=== PATIENT | female | born 1950 | race Caucasian/White ===

== ENCOUNTER 2019-02-16 15:29 | Observation (INO) | payer MEDICARE, SELFPAY ==
[2019-02-16] VITALS (9 sets, daily range): BP systolic 135–168; BP diastolic 60–86; PULSE 66–80; RESP 14–24; TEMP 36.4–37.1; O2SAT 95–100; BMI 27.4
--- NOTE | 2019-02-16 15:57 | DI.RAD.S_ITS ---
PROCEDURE: XR CHEST 1V INDICATIONS: chest pain TECHNIQUE: One view of the chest was acquired. COMPARISON: [facility], , CHEST 2 VIEW, 12/13/2017, 17:56. FINDINGS: Surgical changes and devices: None. Lungs and pleura: Lungs are clear. No pleural effusions or pneumothorax. Mediastinum: Mediastinal contours appear normal. Heart size is normal. There is a large gas filled hiatal hernia. Bones and chest wall: No suspicious bony lesions. Overlying soft tissues appear unremarkable. IMPRESSION: 1. No acute cardiopulmonary findings. 2. Large hiatal hernia. Dictated by: Lesley Mitchell M.D. on 02/16/2019 at 16:29 Approved by: Lesley Mitchell M.D. on 02/16/2019 at 16:29
[2019-02-16 16:15] LABS: Add Manual Diff / Slide Review NO; Basophils Absolute Auto 0 /uL (0-100); Basophils Percent Auto 0.5 % (0-2); Eosinophils Absolute Auto 200 /uL (0-450); Eosinophils Percent Auto 2.1 % (2-4); Hematocrit 21.7 % (36-46); Lymphocytes Absolute Auto 1800 /uL (1100-4500); Lymphocytes Percent Auto 23.9 % (25-40); Mean Corpuscular HGB Conc 31.8 % (30-36); Mean Corpuscular Hemoglobin 24.3 PG (26-34); Mean Corpuscular Volume 76.2 fL (80-100); Monocytes Absolute Auto 500 /uL (0-900); Monocytes Percent Auto 6.3 % (3-14); Neutrophils Absolute Auto 5200 /uL (1500-7000); Neutrophils Percent Auto 67.2 % (50-75); Platelet Count 444 X10^3/uL (150-400); Red Blood Cell Count 2.85 X10^6/uL (4.0-5.2); Red Cell Distribution Width 14.1 % (11.6-14.8); White Blood Cell Count 7.7 X10^3/uL (4.5-11.0)
[2019-02-16 16:17] LABS: Hemoglobin 6.9 g/dL (12.0-16.0)
[2019-02-16 16:23] LABS: INR 0.9 (0.9-1.3); Prothrombin Time 10.8 SECONDS (10.1-12.7)
[2019-02-16 16:26] LABS: PTT Partial Thromboplastin Tim 31 SECONDS (26.4-36.2)
[2019-02-16 16:28] LABS: Alanine Aminotransferase 24 IU/L (9-52); Albumin 4.1 g/dL (3.5-5.0); Albumin Globulin Ratio 1.6 (1.0-2.8); Alkaline Phosphatase 72 U/L (38-126); Aspartate Aminotransferase 25 IU/L (14-36); BUN Creatinine Ratio 24.4 (6-22); Blood Urea Nitrogen 22 mg/dL (7-17); Calcium 8.6 mg/dL (8.4-10.2); Carbon Dioxide 26 mmol/L (22-32); Chloride 100 mmol/L (98-107); Creatine Kinase 124 U/L (30-135); Estimated Glomerular Filt Rate > 60.0 mL/min (>60); Globulin 2.5 g/dL (1.7-4.1); Glucose 94 mg/dL (80-110); HEMOLYSIS < 15 (0-50); Lipase 93 U/L (23-300); Potassium 3.9 mmol/L (3.4-5.1); Sodium 135 mmol/L (137-145); Total Protein 6.6 g/dL (6.3-8.2)
[2019-02-16 16:39] LABS: Bilirubin Total < 0.1 mg/dL (0.2-1.3); Troponin I < 0.012 ng/mL (0.01-0.034)
[2019-02-16 16:44] LABS: CKMB % Relative Index 1.8 % (1.5-5.0); Creatine Kinase MB 2.19 ng/mL (<2.37)
--- NOTE | 2019-02-16 17:35 | PC.NURSE ---
States due for colonoscopy in September.
--- NOTE | 2019-02-16 17:58 | ED.SOB ---
HPI - SOB/Dyspnea General Chief Complaint: Shortness of Breath/Dyspnea Stated Complaint: BLOOD PRESSURE IS HIGH Time Seen by Provider: 02/16/19 17:57 Source: patient Mode of arrival: ambulatory Limitations: no limitations History of Present Illness 68-year-old female comes to the emergency department with complaint of shortness of breath. Patient states it has been slowly increasing over time. Patient states that she notice that seemed a little bit worse today. She denies any chest pain or pressure, she denies any passing out. She occasionally feels a little lightheaded. She states when she tries to exert she does get more short of breath. she denies any nausea or vomiting he has not noticed any changes to her stools or any black or tarry stools. She has not noticed any bright red blood in her stool. She has not been having any other bleeding that she has noted. patient states that she was supposed to have a repeat colonoscopy because the 11 04 she had not done an adequate prep. She has not had this done. She occasionally takes aspirin daily but not every single day she takes levothyroxine and denies any other daily medications. She denies any other surgeries at this time. Related Data Home Medications Medication Instructions Recorded Confirmed aspirin [Adult Low Dose Aspirin] 81 mg PO DAILY 02/16/19 02/16/19 cholecalciferol (vitamin D3) 2,000 unit PO DAILY 02/16/19 02/16/19 [Vitamin D3] levothyroxine [Synthroid] 50 mcg PO DAILY 02/16/19 02/16/19 Allergies Allergy/AdvReac Type Severity Reaction Status Date / Time ampicillin [AMPICILLIN] Allergy Intermediate HIVES Verified 02/16/19 15:50 Penicillins [PENICILLINS] Allergy Intermediate HIVES Verified 02/16/19 15:50 Tetracyclines [TETRACYCLINES] Allergy Intermediate HIVES Verified 02/16/19 15:50 Review of Systems Review of Systems ROS Unobtainable: All systems reviewed & are unremarkable except as noted in HPI and below Constitutional Denies chills, Reports fatigue, Denies fever(s), Denies lethargy and Denies weakness Cardiovascular Denies chest pain, Denies syncope, Denies edema, Denies irregular heart rhythm, Denies lightheadedness, Denies radiating jaw, neck or arm pain, Denies palpitations, Reports dyspnea, Reports dyspnea on exertion and Denies orthopnea Respiratory Denies change in phlegm color, Denies chest congestion, Denies cough, Denies hemoptysis, Reports dyspnea, Reports dyspnea on exertion and Denies wheezing Gastrointestinal Gastrointestinal: Denies abdominal pain, Denies melena, Denies hematochezia, Denies change in bowel habits, Denies constipation, Denies diarrhea, Denies nausea and Denies vomiting Genitourinary Denies hematuria, Denies urinary frequency, Denies urinary hesitancy and Denies urinary urgency Musculoskeletal Denies back pain Integumentary/Breasts Denies unusual bruising Neurologic Denies syncope and Denies weakness Endocrine Reports fatigue and Denies palpitations Allergic/Immunologic Denies wheezing [employer] Medical History (Updated 02/16/19 @ 19:26 by Debora Montero DO) Hypothyroid (Chronic) Social History Smoking Status: Former smoker Social History Smoking Status: Former smoker Exam Narrative Exam Narrative: GENERAL: Alert and oriented x three, well-nourished, well-appearing female in no acute distress. HEENT: Head normocephalic, atraumatic, EOMI, pupils reactive, face symmetric, moist mucous membranes NECK: Supple, full range of motion CARDIOVASCULAR: Regular rate and rhythm without murmurs, rubs or gallops. RESPIRATORY: Breath sounds equal bilaterally, no wheezes rales or rhonchi. ABDOMEN: Soft, nontender. Normoactive bowel sounds all 4 quadrants. No guarding or rebound, rigidity, no mass. rectal exam shows no mass, stool is brownish in coloration, stool occult is positive : No CVA tenderness EXTREMITIES: Normal range of motion, no clubbing or edema. Neurovascularly intact NEUROLOGICAL: Cranial nerves II through XII grossly intact. Moving all extremities SKIN: Warm, dry, no petechiae, no rashes or lesions. Initial Vital Signs Initial Vital Signs: Vital Signs Temperature 98.8 F 02/16/19 15:46 Pulse Rate 80 02/16/19 15:46 Respiratory Rate 14 02/16/19 15:46 Blood Pressure 153/84 H 02/16/19 15:46 Pulse Oximetry 100 02/16/19 15:46 Course Orders Ordered: ED Orders 02/16/19 15:53 EKG-12 Lead Stat 02/16/19 15:57 XR chest 2V Stat 02/16/19 16:03 Complete Blood Count AUTO DIFF Stat Comprehensive Metabolic Panel Stat Lipase Stat Partial Thromboplastin Time Stat Prothrombin Time INR Stat Troponin & CK Cardiac Panel Stat 02/16/19 16:45 Packed Cells Stat Type and Screen Stat Sodium Chloride (Normal Saline 0.9%) 250 mls @ 21 mls/hr IV CONT KILLIAN Discontinued Medications Furosemide (Lasix) 20 mg IV NOW ONE Stop: 02/16/19 18:36 Pantoprazole Sodium (Protonix) 40 mg IV NOW ONE Stop: 02/16/19 18:53 Last Admin: 02/16/19 19:21 Dose: 40 mg Vital Signs - 8 hr 02/16/19 15:46 02/16/19 17:59 02/16/19 18:29 Temperature 98.8 F Pulse Rate 80 72 71 Respiratory Rate 14 19 19 Blood Pressure 153/84 H Blood Pressure [Left Arm] 146/74 H 158/78 H Pulse Oximetry 100 100 100 MDM - SOB/Dyspnea Lab Data Attestation: I reviewed the patient's lab results. Result diagrams: 02/16/19 16:03 02/16/19 16:03 Lab Results 02/16/19 02/16/19 02/16/19 Range/Units 16:03 16:03 16:03 WBC 7.7 (4.5-11.0) X10^3/uL RBC 2.85 L (4.0-5.2) X10^6/uL Hgb 6.9 L* (12.0-16.0) g/dL Hct 21.7 L (36-46) % MCV 76.2 L (80-100) fL MCH 24.3 L (26-34) PG MCHC 31.8 (30-36) % RDW 14.1 (11.6-14.8) % Plt Count 444 H (150-400) X10^3/uL Neut % (Auto) 67.2 (50-75) % Lymph % (Auto) 23.9 L (25-40) % [place] % (Auto) 6.3 (3-14) % Eos % (Auto) 2.1 (2-4) % Baso % (Auto) 0.5 (0-2) % Neut # (Auto) 5200 (7116-1940) /uL Lymph # (Auto) 1800 (9812-5546) /uL [place] # (Auto) 500 (0-900) /uL Eos # (Auto) 200 (0-450) /uL Baso # (Auto) 0 (0-100) /uL PT 10.8 (10.1-12.7) SECONDS INR 0.9 (0.9-1.3) APTT 31 (26.4-36.2) SECONDS Sodium 135 L (137-145) mmol/L Potassium 3.9 (3.4-5.1) mmol/L Chloride 100 (98-107) mmol/L Carbon Dioxide 26 (22-32) mmol/L BUN 22 H (7-17) mg/dL Creatinine 0.90 (0.52-1.04) mg/dL Estimated GFR > 60.0 (>60) mL/min BUN/Creatinine Ratio 24.4 H (6-22) Glucose 94 (80-110) mg/dL Calcium 8.6 (8.4-10.2) mg/dL Total Bilirubin < 0.1 L (0.2-1.3) mg/dL AST 25 (14-36) IU/L ALT 24 (9-52) IU/L Alkaline Phosphatase 72 (38-126) U/L Total Creatine Kinase 124 (30-135) U/L CK-MB (CK-2) 2.19 (<2.37) ng/mL CK-MB (CK-2) Rel Index 1.8 (1.5-5.0) % Troponin I < 0.012 (0.01-0.034) ng/mL Total Protein 6.6 (6.3-8.2) g/dL Albumin 4.1 (3.5-5.0) g/dL Globulin 2.5 (1.7-4.1) g/dL Albumin/Globulin Ratio 1.6 (1.0-2.8) Lipase 93 (23-300) U/L Blood Type Crossmatch 02/16/19 Range/Units 16:45 WBC (4.5-11.0) X10^3/uL RBC (4.0-5.2) X10^6/uL Hgb (12.0-16.0) g/dL Hct (36-46) % MCV (80-100) fL MCH (26-34) PG MCHC (30-36) % RDW (11.6-14.8) % Plt Count (150-400) X10^3/uL Neut % (Auto) (50-75) % Lymph % (Auto) (25-40) % [place] % (Auto) (3-14) % Eos % (Auto) (2-4) % Baso % (Auto) (0-2) % Neut # (Auto) (7311-0699) /uL Lymph # (Auto) (6185-0090) /uL [place] # (Auto) (0-900) /uL Eos # (Auto) (0-450) /uL Baso # (Auto) (0-100) /uL PT (10.1-12.7) SECONDS INR (0.9-1.3) APTT (26.4-36.2) SECONDS Sodium (137-145) mmol/L Potassium (3.4-5.1) mmol/L Chloride (98-107) mmol/L Carbon Dioxide (22-32) mmol/L BUN (7-17) mg/dL Creatinine (0.52-1.04) mg/dL Estimated GFR (>60) mL/min BUN/Creatinine Ratio (6-22) Glucose (80-110) mg/dL Calcium (8.4-10.2) mg/dL Total Bilirubin (0.2-1.3) mg/dL AST (14-36) IU/L ALT (9-52) IU/L Alkaline Phosphatase (38-126) U/L Total Creatine Kinase (30-135) U/L CK-MB (CK-2) (<2.37) ng/mL CK-MB (CK-2) Rel Index (1.5-5.0) % Troponin I (0.01-0.034) ng/mL Total Protein (6.3-8.2) g/dL Albumin (3.5-5.0) g/dL Globulin (1.7-4.1) g/dL Albumin/Globulin Ratio (1.0-2.8) Lipase (23-300) U/L Blood Type O Positive Crossmatch See Detail Imaging Data Chest x-ray: Radiologist's impression: Deisy Doty 68 F [address] [address] XRay Report Signed Patient: Deisy Doty AMR#: [id number] : 1950Acct:[id number] Age/Sex: 68 / FDate of Service: 02/16/19 Loc: ED Accession Number: [id number] Procedure: XR chest 2V Ordering Provider: Debora Montero D.O. PROCEDURE: XR CHEST 1V INDICATIONS: chest pain TECHNIQUE: One view of the chest was acquired. COMPARISON: [facility], CHEST 2 VIEW, 12/13/2017, 17:56. FINDINGS: Surgical changes and devices: None. Lungs and pleura: Lungs are clear. No pleural effusions or pneumothorax. Mediastinum: Mediastinal contours appear normal. Heart size is normal. There is a large gas filled hiatal hernia. Bones and chest wall: No suspicious bony lesions. Overlying soft tissues appear unremarkable. IMPRESSION: 1. No acute cardiopulmonary findings. 2. Large hiatal hernia. Dictated by: Lesley Mitchell M.D. on 02/16/2019 at 16:29 Approved by: Lesley Mitchell M.D. on 02/16/2019 at 16:29 ECG Data Attestation: I personally reviewed and interpreted this ECG as follows: Prior ECG tracings: available for review Interpretation: EKG shows a sinus rhythm with a rate of 77, AL interval 167, QRS of 97 and QTC of 385. Incomplete right bundle branch block. MDM Narrative Medical decision making narrative: Patient is mildly symptomatic but has a significantly low hemoglobin at 6.9. Patient's vital signs are normal with slight hypertension. Hemoccult is positive. patient's platelets are elevated at 444, white count is in the normal range. Patient's BUN is slightly elevated , coags are normal, sodium was 135 with normal LFTs and troponin is negative. patient had a chest x-ray she was complaining of shortness of breath which showed a hiatal hernia and no other acute findings. Patient and I discussed she is willing to receive blood and was ordered 1 unit packed red blood cells, Protonix 40 mg IV. I spoke with the Katina SENIOR ELECTRICAL PROJECT MANAGER with the hospitalist and accepts. We did discuss that she had a very short period of abdominal pain last week that quickly resolved and no other imaging was ordered today but we did discuss colonoscopy. She states she will follow up with General surgery regarding colonoscopy. Discharge Plan Departure Patient Disposition: Admitted as Observation Clinical Impression: Symptomatic anemia, GI bleed
--- NOTE | 2019-02-16 18:36 | ED_ITS ---
HPI - SOB/Dyspnea General Chief Complaint: Shortness of Breath/Dyspnea Stated Complaint: BLOOD PRESSURE IS HIGH Time Seen by Provider: 02/16/19 17:57 Source: patient Mode of arrival: ambulatory Limitations: no limitations History of Present Illness 68-year-old female comes to the emergency department with complaint of shortness of breath. Patient states it has been slowly increasing over time. Patient states that she notice that seemed a little bit worse today. She denies any chest pain or pressure, she denies any passing out. She occasionally feels a little lightheaded. She states when she tries to exert she does get more short of breath. she denies any nausea or vomiting he has not noticed any changes to her stools or any black or tarry stools. She has not noticed any bright red blood in her stool. She has not been having any other bleeding that she has noted. patient states that she was supposed to have a repeat colonoscopy because the 11 04 she had not done an adequate prep. She has not had this done. She occasionally takes aspirin daily but not every single day she takes levothyroxine and denies any other daily medications. She denies any other surgeries at this time. Related Data Home Medications Medication Instructions Recorded Confirmed aspirin [Adult Low Dose Aspirin] 81 mg PO DAILY 02/16/19 02/16/19 cholecalciferol (vitamin D3) 2,000 unit PO DAILY 02/16/19 02/16/19 [Vitamin D3] levothyroxine [Synthroid] 50 mcg PO DAILY 02/16/19 02/16/19 Allergies Allergy/AdvReac Type Severity Reaction Status Date / Time ampicillin [AMPICILLIN] Allergy Intermediate HIVES Verified 02/16/19 15:50 Penicillins [PENICILLINS] Allergy Intermediate HIVES Verified 02/16/19 15:50 Tetracyclines [TETRACYCLINES] Allergy Intermediate HIVES Verified 02/16/19 15:50 Review of Systems Review of Systems ROS Unobtainable: All systems reviewed & are unremarkable except as noted in HPI and below Constitutional Denies chills, Reports fatigue, Denies fever(s), Denies lethargy and Denies weakness Cardiovascular Denies chest pain, Denies syncope, Denies edema, Denies irregular heart rhythm, Denies lightheadedness, Denies radiating jaw, neck or arm pain, Denies palpitations, Reports dyspnea, Reports dyspnea on exertion and Denies orthopnea Respiratory Denies change in phlegm color, Denies chest congestion, Denies cough, Denies hemoptysis, Reports dyspnea, Reports dyspnea on exertion and Denies wheezing Gastrointestinal Gastrointestinal: Denies abdominal pain, Denies melena, Denies hematochezia, Denies change in bowel habits, Denies constipation, Denies diarrhea, Denies nausea and Denies vomiting Genitourinary Denies hematuria, Denies urinary frequency, Denies urinary hesitancy and Denies urinary urgency Musculoskeletal Denies back pain Integumentary/Breasts Denies unusual bruising Neurologic Denies syncope and Denies weakness Endocrine Reports fatigue and Denies palpitations Allergic/Immunologic Denies wheezing [facility] Medical History (Updated 02/16/19 @ 19:26 by Debora Montero DO) Hypothyroid (Chronic) Social History Smoking Status: Former smoker Social History Smoking Status: Former smoker Exam Narrative Exam Narrative: GENERAL: Alert and oriented x three, well-nourished, well- appearing female in no acute distress. HEENT: Head normocephalic, atraumatic, EOMI, pupils reactive, face symmetric, moist mucous membranes NECK: Supple, full range of motion CARDIOVASCULAR: Regular rate and rhythm without murmurs, rubs or gallops. RESPIRATORY: Breath sounds equal bilaterally, no wheezes rales or rhonchi. ABDOMEN: Soft, nontender. Normoactive bowel sounds all 4 quadrants. No guarding or rebound, rigidity, no mass. rectal exam shows no mass, stool is brownish in coloration, stool occult is positive : No CVA tenderness EXTREMITIES: Normal range of motion, no clubbing or edema. Neurovascularly intact NEUROLOGICAL: Cranial nerves II through XII grossly intact. Moving all extremities SKIN: Warm, dry, no petechiae, no rashes or lesions. Initial Vital Signs Initial Vital Signs: Vital Signs Temperature 98.8 F 02/16/19 15:46 Pulse Rate 80 02/16/19 15:46 Respiratory Rate 14 02/16/19 15:46 Blood Pressure 153/84 H 02/16/19 15:46 Pulse Oximetry 100 02/16/19 15:46 Course Orders Ordered: ED Orders 02/16/19 15:53 EKG-12 Lead Stat 02/16/19 15:57 XR chest 2V Stat 02/16/19 16:03 Complete Blood Count AUTO DIFF Stat Comprehensive Metabolic Panel Stat Lipase Stat Partial Thromboplastin Time Stat Prothrombin Time INR Stat Troponin & CK Cardiac Panel Stat 02/16/19 16:45 Packed Cells Stat Type and Screen Stat Sodium Chloride (Normal Saline 0.9%) 250 mls @ 21 mls/hr IV CONT KILLIAN Discontinued Medications Furosemide (Lasix) 20 mg IV NOW ONE Stop: 02/16/19 18:36 Pantoprazole Sodium (Protonix) 40 mg IV NOW ONE Stop: 02/16/19 18:53 Last Admin: 02/16/19 19:21 Dose: 40 mg Vital Signs - 8 hr 02/16/19 15:46 02/16/19 17:59 02/16/19 18:29 Temperature 98.8 F Pulse Rate 80 72 71 Respiratory Rate 14 19 19 Blood Pressure 153/84 H Blood Pressure [Left Arm] 146/74 H 158/78 H Pulse Oximetry 100 100 100 MDM - SOB/Dyspnea Lab Data Attestation: I reviewed the patient's lab results. Result diagrams: 02/16/19 16:03 02/16/19 16:03 Lab Results 02/16/19 02/16/19 02/16/19 Range/Units 16:03 16:03 16:03 WBC 7.7 (4.5-11.0) X10^3/uL RBC 2.85 L (4.0-5.2) X10^6/uL Hgb 6.9 L* (12.0-16.0) g/dL Hct 21.7 L (36-46) % MCV 76.2 L (80-100) fL MCH 24.3 L (26-34) PG MCHC 31.8 (30-36) % RDW 14.1 (11.6-14.8) % Plt Count 444 H (150-400) X10^3/uL Neut % (Auto) 67.2 (50-75) % Lymph % (Auto) 23.9 L (25-40) % [place] % (Auto) 6.3 (3-14) % Eos % (Auto) 2.1 (2-4) % Baso % (Auto) 0.5 (0-2) % Neut # (Auto) 5200 (4407-4271) /uL Lymph # (Auto) 1800 (2127-9954) /uL [place] # (Auto) 500 (0-900) /uL Eos # (Auto) 200 (0-450) /uL Baso # (Auto) 0 (0-100) /uL PT 10.8 (10.1-12.7) SECONDS INR 0.9 (0.9-1.3) APTT 31 (26.4-36.2) SECONDS Sodium 135 L (137-145) mmol/L Potassium 3.9 (3.4-5.1) mmol/L Chloride 100 (98-107) mmol/L Carbon Dioxide 26 (22-32) mmol/L BUN 22 H (7-17) mg/dL Creatinine 0.90 (0.52-1.04) mg/dL Estimated GFR > 60.0 (>60) mL/min BUN/Creatinine Ratio 24.4 H (6-22) Glucose 94 (80-110) mg/dL Calcium 8.6 (8.4-10.2) mg/dL Total Bilirubin < 0.1 L (0.2-1.3) mg/dL AST 25 (14-36) IU/L ALT 24 (9-52) IU/L Alkaline Phosphatase 72 (38-126) U/L Total Creatine Kinase 124 (30-135) U/L CK-MB (CK-2) 2.19 (<2.37) ng/mL CK-MB (CK-2) Rel Index 1.8 (1.5-5.0) % Troponin I < 0.012 (0.01-0.034) ng/mL Total Protein 6.6 (6.3-8.2) g/dL Albumin 4.1 (3.5-5.0) g/dL Globulin 2.5 (1.7-4.1) g/dL Albumin/Globulin Ratio 1.6 (1.0-2.8) Lipase 93 (23-300) U/L Blood Type Crossmatch 02/16/19 Range/Units 16:45 WBC (4.5-11.0) X10^3/uL RBC (4.0-5.2) X10^6/uL Hgb (12.0-16.0) g/dL Hct (36-46) % MCV (80-100) fL MCH (26-34) PG MCHC (30-36) % RDW (11.6-14.8) % Plt Count (150-400) X10^3/uL Neut % (Auto) (50-75) % Lymph % (Auto) (25-40) % [place] % (Auto) (3-14) % Eos % (Auto) (2-4) % Baso % (Auto) (0-2) % Neut # (Auto) (2482-2741) /uL Lymph # (Auto) (4720-0215) /uL [place] # (Auto) (0-900) /uL Eos # (Auto) (0-450) /uL Baso # (Auto) (0-100) /uL PT (10.1-12.7) SECONDS INR (0.9-1.3) APTT (26.4-36.2) SECONDS Sodium (137-145) mmol/L Potassium (3.4-5.1) mmol/L Chloride (98-107) mmol/L Carbon Dioxide (22-32) mmol/L BUN (7-17) mg/dL Creatinine (0.52-1.04) mg/dL Estimated GFR (>60) mL/min BUN/Creatinine Ratio (6-22) Glucose (80-110) mg/dL Calcium (8.4-10.2) mg/dL Total Bilirubin (0.2-1.3) mg/dL AST (14-36) IU/L ALT (9-52) IU/L Alkaline Phosphatase (38-126) U/L Total Creatine Kinase (30-135) U/L CK-MB (CK-2) (<2.37) ng/mL CK-MB (CK-2) Rel Index (1.5-5.0) % Troponin I (0.01-0.034) ng/mL Total Protein (6.3-8.2) g/dL Albumin (3.5-5.0) g/dL Globulin (1.7-4.1) g/dL Albumin/Globulin Ratio (1.0-2.8) Lipase (23-300) U/L Blood Type O Positive Crossmatch See Detail Imaging Data Chest x-ray: Radiologist's impression: Deisy Doty 68 F [address] [address] XRay Report Signed Patient: Deisy Doty AMR#: [id number] : 1950Acct:[id number] Age/Sex: 68 / FDate of Service: 02/16/19 Loc: ED Accession Number: [id number] Procedure: XR chest 2V Ordering Provider: Debora Montero D.O. PROCEDURE: XR CHEST 1V INDICATIONS: chest pain TECHNIQUE: One view of the chest was acquired. COMPARISON: [facility], CHEST 2 VIEW, 12/13/2017, 17:56. FINDINGS: Surgical changes and devices: None. Lungs and pleura: Lungs are clear. No pleural effusions or pneumothorax. Mediastinum: Mediastinal contours appear normal. Heart size is normal. There is a large gas filled hiatal hernia. Bones and chest wall: No suspicious bony lesions. Overlying soft tissues appear unremarkable. IMPRESSION: 1. No acute cardiopulmonary findings. 2. Large hiatal hernia. Dictated by: Lesley Mitchell M.D. on 02/16/2019 at 16:29 Approved by: Lesley Mitchell M.D. on 02/16/2019 at 16:29 ECG Data Attestation: I personally reviewed and interpreted this ECG as follows: Prior ECG tracings: available for review Interpretation: EKG shows a sinus rhythm with a rate of 77, [place] interval 167, QRS of 97 and QTC of 385. Incomplete right bundle branch block. MDM Narrative Medical decision making narrative: Patient is mildly symptomatic but has a significantly low hemoglobin at 6.9. Patient's vital signs are normal with sl ight hypertension. Hemoccult is positive. patient's platelets are elevated at 444, white count is in the normal range. Patient's BUN is slightly elevated , coags are normal, sodium was 135 with normal LFTs and troponin is negative. patient had a chest x-ray she was complaining of shortness of breath which showed a hiatal hernia and no other acute findings. Patient and I discussed she is willing to receive blood and was ordered 1 unit packed red blood cells, Protonix 40 mg IV. I spoke with the Katina WINDOW/DISTRIBUTION CLERK with the hospitalist and accepts. We did discuss that she had a very short period of abdominal pain last week that quickly resolved and no other imaging was ordered today but we did discuss colonoscopy. She states she will follow up with General surgery regarding colonoscopy. Discharge Plan Departure Patient Disposition: Admitted as Observation Clinical Impression: Symptomatic anemia, GI bleed
[2019-02-16] MEDS: PANTOPRAZOLE 40 MG VIAL IV (19:21)
--- NOTE | 2019-02-16 20:37 | PC.NURSE ---
Pt arrived from the ER to [facility] 206 @ 1954 Alert/oriented x 3 Lungs clear, SpO2 95% RA. SCD applied. HL LAC intact/patent. Pt oriented to room and call system. Call light w/in reach. Pt calls appropriately.
--- NOTE | 2019-02-16 22:32 | PC.NURSE ---
Pt admitted to 206 from ER with c/o increase sob for last 2 weeks. now here to recieve 1 unit of prbc that are being infused. vss oriented to room and hospital , npo no pain tele on SR
--- NOTE | 2019-02-16 22:59 | P.HP_ITS ---
History of Present Illness Date Patient Seen: 02/16/19 Time Patient Seen: 22:59 Chief complaint: BLOOD PRESSURE IS HIGH Narrative: The patient is a poor and unreliable historian. Patient was referred to the ED on 02/16/2019 by the walk-in clinic to be evaluated for shortness of breath. Patient reports having progressive dyspnea since November of 2018, more pronounced in the past 2 weeks. Associated symptoms include fatigue lightheadedness, and palpitations. Reports having few days of intermittent LLQ abdominal pain in the past two weeks, self resolved. Denies chest pain, nausea, vomiting, diarrhea, syncopal events, hemoptysis, hematemesis, and blood loss per rectum. Denies weight loss. No known prior history of anemia. Denies routine use of NSAIDs. On ASA 81 mg daily. No history of autoimmune GI disorders. She has had a colonoscopy 8 years ago, a polyp was found and resected. She was asked to follow up in 5 years, but failed to do so. It appears a colonoscopy was planned in January of 2018; however, patient was unable to tolerate the prep and decided not to continue with the procedure. Family history significant for colorectal cancer. Initial labs revealed a Hgb of 6.9 (prevously 13.4 on 12/2017). Patient's PMH is limited to hypothyroidisn, superficial thrombophlebitis, hiatal hernia, and potentially an esophageal motility disorder. ED Work-Up WBC 7.7 RBC 2.85 HGB 6.9 HCT 21.7 MCV 76.2 MCH 24.3 RDW 14.1 PLT 44 NA 135 K 3.9 CL 100 CA 8.6 CO2 26 BUN 22 CR 0.9 T. BILI < 0.1 AST 25 ALT 24 Alk Phos 72 CK 124 TROP < 0.012 CXR... no acute cardiopulmonary findings, large hiatal hernia Patient History Medical History (Updated 02/16/19 @ 23:47 by MERCEDES Aguirre) Vitamin D deficiency (Acute) Hypothyroid (Chronic) Surgical History (Updated 02/16/19 @ 23:47 by MERCEDES Aguirre) H/O bilateral oophorectomy (Acute) Family History (Updated 02/16/19 @ 23:45 by MERCEDES Aguirre) Mother Lymphoma Father Colorectal cancer Social History Smoking Status: Former smoker Family & Social History Family History (Updated 02/16/19 @ 23:45 by MERCEDES Aguirre) Mother Lymphoma Father Colorectal cancer Safety & Behavioral: Feels Safe in Current Yes Environment Been Physically Hurt or No Threatened By a Person Suicidal Ideation Description None Suicide Plan Description No Plan Tobacco & Substance use: Smoking Status Former smoker, quit in 1983. Prior to that smoked 1 pack per day for 12-15 years. alcohol intake frequency Denies current use of alcohol. Does have prior use of alcohol without alcoholism. Substance Use Type Denies prior and current recreational drug use Meds Home Medications Medication Instructions Recorded Confirmed Type aspirin [Adult Low Dose Aspirin] 81 mg PO DAILY 02/16/19 02/16/19 History cholecalciferol (vitamin D3) 2,000 unit PO DAILY 02/16/19 02/16/19 History [Vitamin D3] levothyroxine [Synthroid] 50 mcg PO DAILY 02/16/19 02/16/19 History Allergies Allergy/AdvReac Type Severity Reaction Status Date / Time ampicillin [AMPICILLIN] Allergy Intermediate HIVES Verified 02/16/19 15:50 Penicillins [PENICILLINS] Allergy Intermediate HIVES Verified 02/16/19 15:50 Tetracyclines [TETRACYCLINES] Allergy Intermediate HIVES Verified 02/16/19 15:50 Review of Systems Review of Systems All systems reviewed & are unremarkable except as noted in HPI and below Exam Vital Signs (past 8 hours): - 02/16/19 15:46 02/16/19 17:59 02/16/19 18:29 Temperature 98.8 F Pulse Rate 80 72 71 Respiratory Rate 14 19 Blood Pressure 153/84 H Blood Pressure [Left Arm] 146/74 H 158/78 H Pulse Oximetry 100 100 100 02/16/19 19:30 02/16/19 19:59 02/16/19 20:05 Temperature 97.6 F Pulse Rate 78 73 Respiratory Rate 24 18 Blood Pressure 168/86 H Blood Pressure [Left Arm] 149/60 H Pulse Oximetry 100 95 95 02/16/19 21:21 02/16/19 21:35 Temperature 98.1 F 97.9 F Pulse Rate 72 66 Respiratory Rate 18 20 Blood Pressure 147/73 H 135/79 Blood Pressure [Left Arm] Pulse Oximetry Oxygen Delivery Method Room Air Narrative Exam Narrative: Constitutional: NAD Neurologic: AOx3, no focal neurological deficits, poor memory recall - appears to be advanced for age Head: NC, AT Eyes: PERRL, EOMI, Ears: external ears normal, no otorrhea Nose: external nose normal, no rhinorrhea or epistaxis Throat: dry MM, oropharynx w/o exudate Neck: no masses, lymphadenopathy, or JVD Chest / Respiratory: equal chest rise, unlabored respiratory effort, no tachypnea, CTAB Heart / CV: S1S2, no murmur Abdomen / GI: round, NT, ND, + BS, no organomegaly Peripheral / Vascular: warm to touch, DP and PT pulses palpable, trace 1+ BLE edema, both extremity significant for varicosities, right lower extremities with superficial hardened knot Musc: full ROM of upper and lower extremities, adequate muscle tone and bulk Skin: no ecchymosis or suspicious lesions / ulcers, pale nailbeds Objective Labs Result Diagrams: 02/16/19 16:03 02/16/19 16:03 Labs: Laboratory Results - last 24 hr 02/16/19 02/16/19 02/16/19 16:03 16:03 16:03 WBC 7.7 RBC 2.85 L Hgb 6.9 L* Hct 21.7 L MCV 76.2 L MCH 24.3 L MCHC 31.8 RDW 14.1 Plt Count 444 H Neut % (Auto) 67.2 Lymph % (Auto) 23.9 L [place] % (Auto) 6.3 Eos % (Auto) 2.1 Baso % (Auto) 0.5 Neut # (Auto) 5200 Lymph # (Auto) 1800 [place] # (Auto) 500 Eos # (Auto) 200 Baso # (Auto) 0 PT 10.8 INR 0.9 APTT 31 Sodium 135 L Potassium 3.9 Chloride 100 Carbon Dioxide 26 BUN 22 H Creatinine 0.90 Estimated GFR > 60.0 BUN/Creatinine Ratio 24.4 H Glucose 94 Calcium 8.6 Total Bilirubin < 0.1 L AST 25 ALT 24 Alkaline Phosphatase 72 Total Creatine Kinase 124 CK-MB (CK-2) 2.19 CK-MB (CK-2) Rel Index 1.8 Troponin I < 0.012 Total Protein 6.6 Albumin 4.1 Globulin 2.5 Albumin/Globulin Ratio 1.6 Lipase 93 Blood Type Antibody Screen Crossmatch 02/16/19 16:45 WBC RBC Hgb Hct MCV MCH MCHC RDW Plt Count Neut % (Auto) Lymph % (Auto) [place] % (Auto) Eos % (Auto) Baso % (Auto) Neut # (Auto) Lymph # (Auto) [place] # (Auto) Eos # (Auto) Baso # (Auto) PT INR APTT Sodium Potassium Chloride Carbon Dioxide BUN Creatinine Estimated GFR BUN/Creatinine Ratio Glucose Calcium Total Bilirubin AST ALT Alkaline Phosphatase Total Creatine Kinase CK-MB (CK-2) CK-MB (CK-2) Rel Index Troponin I Total Protein Albumin Globulin Albumin/Globulin Ratio Lipase Blood Type O Positive Antibody Screen Negative Crossmatch See Detail Assessment & Plan Assessment & Plan narrative: Acute blood loss anemia (microcytic), acute, present on admission, active h/o hemorrhoids. Family history of colorectal cancer and lymphoma. - Transfuse 1 unit PRBCs - Trend Hgb Q8H, repeat CBC at 2 am - Add iron studies to her initial labs Acute GI Bleed, present on admission, active No s/s of hemodynamic instability. - Consult general surgery, routine, to be notified in am - Hemoccult positive - NPO status - Protonix 40 mg BID Hypovolemia, acute, present on admission, active - receiving 1 unit of PRBC - add NS at 75 ml/hr x1L - hold ASA at this time Exertional Dyspnea, acute, present on admission, acive potentially in the setting of anemia, cardiac pathology cannot be ruled out. Trop WNL. EKG revealed sinus rhythm with incomplete are BBB. - if not improving, then may need to consider an echo Essential hypertension, chronic condition, present on admission, poorly controlled, active BP mildly elevated. - Trend BP overnight, consider starting on an anti-hypertensive in am Large hiatal hernia, chronic present on admission, active possibly increased in size from previous exam and contributing to the degree of anemia Hypothyroidism, chronic, present on admission, active - Resume [employer] regimen of levothyroxine, will check TSH level Home medications reviewed and reconciled. VTE prophylaxis with SCDs Quality VTE Deep Vein Thrombosis/Pulmonary Embolism Present on Admission: No
[2019-02-17] VITALS (17 sets, daily range): BP systolic 92–154; BP diastolic 48–86; PULSE 55–90; RESP 15–20; TEMP 36.4–37.6; O2SAT 94–100; BMI 27.0
--- NOTE | 2019-02-17 | PATH_ITS ---
[facility] Accession Number: [id number] . 01 Material submitted: . gastrointestinal site - RANDOM GASTRIC BIOPSIES . 02 Diagnosis: Stomach, Random Biopsies: Antral and body-type mucosa with no diagnostic abnormality. Negative for Helicobacter by immunohistochemistry. Negative for intestinal metaplasia. Negative for dysplasia and malignancy. [facility]/02/19/2019 . 02 Electronically signed: . Rossana Rodas MD, Pathologist NPI- [id number] . 01 Gross description: . RANDOM GASTRIC BIOPSIES: Received in formalin are multiple fragment(s) of king, soft tissue measuring 0.1 x 0.1 x 0.1 cm to 0.2 x 0.2 x 0.1 cm which is entirely submitted and submitted entirely in 1 cassette(s) /DMC /DMC . 02 Microscopic: . An immunohistochemical stain was performed to evaluate for Helicobacter organisms and is negative. The control stain showed appropriate reactivity. . * This test was developed and its performance characteristics determined by [facility]. It has not been cleared or approved by the U.S. Food and Drug Administration. The FDA has determined that such clearance or approval is not necessary. This test is used for clinical purposes. It should not be regarded as investigational or for research. . 02 Pathologist provided ICD-10: R10.9 . 02 CPT . 733163, Q50013 Performed at: [facility] [address] [place] [address], [place], [place] [id number] MD Adi Guerrero MD Phone: [phone] Performed at: 02 [facility] [address] [place], [place] [id number] MD Rossana Rodas MD Phone: [phone]
[2019-02-17] MEDS: FUROSEMIDE 20 MG/2 ML VIAL IV (00:07)
[2019-02-17 01:45] LABS: Reticulocyte Count, Percent 1.6 % (1.06-2.63)
[2019-02-17] MEDS: SODIUM CHLORIDE 0.9% 1,000 ML 75 ML IV (01:52)
[2019-02-17 02:20] LABS: Ferritin 4.5 ng/mL (11.1-264)
[2019-02-17 02:29] LABS: BUN Creatinine Ratio 21.3 (6-22); Blood Urea Nitrogen 17 mg/dL (7-17); Calcium 9.1 mg/dL (8.4-10.2); Carbon Dioxide 31 mmol/L (22-32); Chloride 101 mmol/L (98-107); Estimated Glomerular Filt Rate > 60.0 mL/min (>60); Glucose 94 mg/dL (80-110); HEMOLYSIS < 15 (0-50); Potassium 3.5 mmol/L (3.4-5.1); Sodium 138 mmol/L (137-145)
[2019-02-17 02:36] LABS: Add Manual Diff / Slide Review NO; Basophils Absolute Auto 0 /uL (0-100); Basophils Percent Auto 0.7 % (0-2); Eosinophils Absolute Auto 200 /uL (0-450); Eosinophils Percent Auto 2.7 % (2-4); Hemoglobin 8.8 g/dL (12.0-16.0); Lymphocytes Absolute Auto 1700 /uL (1100-4500); Lymphocytes Percent Auto 29.7 % (25-40); Mean Corpuscular HGB Conc 33.7 % (30-36); Mean Corpuscular Hemoglobin 26.1 PG (26-34); Mean Corpuscular Volume 77.4 fL (80-100); Monocytes Absolute Auto 500 /uL (0-900); Monocytes Percent Auto 8.5 % (3-14); Neutrophils Absolute Auto 3300 /uL (1500-7000); Neutrophils Percent Auto 58.4 % (50-75); Platelet Count 424 X10^3/uL (150-400); Red Blood Cell Count 3.39 X10^6/uL (4.0-5.2); Red Cell Distribution Width 15.4 % (11.6-14.8); White Blood Cell Count 5.6 X10^3/uL (4.5-11.0)
[2019-02-17 02:39] LABS: Hematocrit 26.3 % (36-46)
[2019-02-17 03:05] LABS: TSH w/ Reflex to FT4 1.62 uIU/mL (0.47-4.68)
[2019-02-17 04:03] LABS: HEMOLYSIS < 15 (0-50); Iron 19 ug/dL (37-170)
[2019-02-17 06:34] LABS: Percent Iron Saturation 4 % (15-50); Total Iron Binding Capacity 456 ug/dL (265-497); Transferrin 343 mg/dL (206-381)
--- NOTE | 2019-02-17 07:42 | P.PN_ITS ---
Subjective Date Patient Seen: 02/17/19 Interval history: The patient is resting in bed comfortably and in no acute distress. He or she denies headache, ear pain, rhinitis, sore throat, cough, shortness of breath, chest pain, abdominal pain, nausea, vomiting, fever, chills, dysuria, diarrhea or constipation. He or she is voiding and eliminating without difficulty. He or she is up ambulating without or with assistance. Exam Vital Signs (past 8 hours): - 02/16/19 23:56 02/17/19 00:00 02/17/19 04:00 Temperature 97.8 F 98.3 F Pulse Rate 69 90 Respiratory Rate 18 20 Blood Pressure 144/85 H 138/74 Pulse Oximetry 99 98 97 02/17/19 06:00 Temperature 97.5 F L Pulse Rate 70 Respiratory Rate 16 Blood Pressure 127/77 Pulse Oximetry 99 Oxygen Delivery Method Room Air Narrative Exam Narrative: General: No acute distress, well-developed, well-nourished, appropriately interactive HEENT: Normocephalic, atraumatic. External ears without defect. Pupils equal, round, and reactive to light and accommodation. Anicteric sclerae, moist conjunctivae, and no lid lag. Oropharynx free of erythema and cobble stoning with moist mucosa. Neck: Supple with full range of motion. No jugular venous distension. No bruits. No lymphadenopathy or thyromegaly. Cardiovascular: Regular rate and rhythm without murmurs, rubs, or gallops appreciated Pulmonary: Clear to auscultation bilaterally without crackles, wheezes, or rhonchi. Normal respiratory effort with no use of accessory muscles. Abdomen: Bowel tones present. Soft, nontender, nondistended. No hepatosplenomegaly or masses appreciated. Extremities: No clubbing, cyanosis, or edema. Skin: Normal temperature, turgor, and texture; no rash, ulcers, or subcutaneous nodules appreciated. Neurological: Cranial nerves grossly intact. Normal muscle strength, tone, and bulk. Reflexes, coordination, and sensory function within normal limits. No known gait impairment. Psychiatric: Normal mood and affect. Alert and oriented to person, place, and time. Objective Labs Result Diagrams: 02/17/19 02:09 02/17/19 02:09 Labs: Laboratory Results - last 24 hr 02/16/19 02/16/19 02/16/19 16:00 16:00 16:03 WBC 7.7 RBC 2.85 L Hgb 6.9 L* Hct 21.7 L MCV 76.2 L MCH 24.3 L MCHC 31.8 RDW 14.1 Plt Count 444 H Neut % (Auto) 67.2 Lymph % (Auto) 23.9 L [place] % (Auto) 6.3 Eos % (Auto) 2.1 Baso % (Auto) 0.5 Neut # (Auto) 5200 Lymph # (Auto) 1800 [place] # (Auto) 500 Eos # (Auto) 200 Baso # (Auto) 0 Percent Retic 1.6 PT INR APTT Sodium Potassium Chloride Carbon Dioxide BUN Creatinine Estimated GFR BUN/Creatinine Ratio Glucose Calcium Iron 19 L TIBC 456 % Saturation 4 L Transferrin 343 Ferritin Total Bilirubin AST ALT Alkaline Phosphatase Total Creatine Kinase CK-MB (CK-2) CK-MB (CK-2) Rel Index Troponin I Total Protein Albumin Globulin Albumin/Globulin Ratio Lipase TSH Blood Type Antibody Screen Crossmatch 02/16/19 02/16/19 02/16/19 16:03 16:03 16:45 WBC RBC Hgb Hct MCV MCH MCHC RDW Plt Count Neut % (Auto) Lymph % (Auto) [place] % (Auto) Eos % (Auto) Baso % (Auto) Neut # (Auto) Lymph # (Auto) [place] # (Auto) Eos # (Auto) Baso # (Auto) Percent Retic PT 10.8 INR 0.9 APTT 31 Sodium 135 L Potassium 3.9 Chloride 100 Carbon Dioxide 26 BUN 22 H Creatinine 0.90 Estimated GFR > 60.0 BUN/Creatinine Ratio 24.4 H Glucose 94 Calcium 8.6 Iron TIBC % Saturation Transferrin Ferritin 4.5 L Total Bilirubin < 0.1 L AST 25 ALT 24 Alkaline Phosphatase 72 Total Creatine Kinase 124 CK-MB (CK-2) 2.19 CK-MB (CK-2) Rel Index 1.8 Troponin I < 0.012 Total Protein 6.6 Albumin 4.1 Globulin 2.5 Albumin/Globulin Ratio 1.6 Lipase 93 TSH Blood Type O Positive Antibody Screen Negative Crossmatch See Detail 02/17/19 02/17/19 02/17/19 02:09 02:09 02:09 WBC 5.6 RBC 3.39 L Hgb 8.8 L Hct 26.3 L MCV 77.4 L MCH 26.1 MCHC 33.7 RDW 15.4 H Plt Count 424 H Neut % (Auto) 58.4 Lymph % (Auto) 29.7 [place] % (Auto) 8.5 Eos % (Auto) 2.7 Baso % (Auto) 0.7 Neut # (Auto) 3300 Lymph # (Auto) 1700 [place] # (Auto) 500 Eos # (Auto) 200 Baso # (Auto) 0 Percent Retic PT INR APTT Sodium 138 Potassium 3.5 Chloride 101 Carbon Dioxide 31 BUN 17 Creatinine 0.80 Estimated GFR > 60.0 BUN/Creatinine Ratio 21.3 Glucose 94 Calcium 9.1 Iron TIBC % Saturation Transferrin Ferritin Total Bilirubin AST ALT Alkaline Phosphatase Total Creatine Kinase CK-MB (CK-2) CK-MB (CK-2) Rel Index Troponin I Total Protein Albumin Globulin Albumin/Globulin Ratio Lipase TSH 1.62 Blood Type Antibody Screen Crossmatch Assessment & Plan Assessment & Plan narrative: Acute blood loss anemia, present on admission. Active. -History of hemorrhoids. Family history of colorectal cancer and lymphoma. -Received 1 unit PRBC. Trend Hgb Q8H. -Iron panel demonstrated iron deficiency anemia secondary to GI bleed. Acute GI bleed, present on admission. Active. -No s/s of hemodynamic instability. Guaiac positive. -Nighttime provider placed general surgery consult and will discuss with them this morning. NPO status for now. -Continue Protonix 40 mg twice daily. Held aspirin. Acute hypovolemia, present on admission. Active. -Received 1 unit of PRBC. -Continue normal saline at 75 ml/hr until adequately hydrated. Acute dyspnea on exertion, likely secondary to symptomatic anemia, present on admission. Active. -Cardiac pathology cannot be ruled out. Trop WNL. EKG revealed sinus rhythm with incomplete RBBB. -If not improving then may need to consider an echocardiogram. Hypertension, chronic, present on admission. Stable. -BP mildly elevated on admission. Continue to trend and will consider starting antihypertensive if blood pressure continues to be elevated. Large hiatal hernia, chronic, present on admission. Active. -Possibly increased in size from previous exam and contributing to the degree of anemia. Hypothyroidism, chronic, present on admission. Stable. -TSH normal at 1.62. -Continue levothyroxine 50 mcg daily. Disposition: Quality VTE Deep Vein Thrombosis/Pulmonary Embolism Present on Admission: No
[2019-02-17] MEDS: PANTOPRAZOLE 40 MG VIAL IV (08:39)
--- NOTE | 2019-02-17 09:39 | PC.NURSE ---
Addendum entered by Lauren Og R.N. 02/17/19 13:55: pt is resting comortably at this time, denies any pain, awakens easily to voice, is SL at this time per order. Original Note: Addendum entered by Lauren Og R.N. 02/17/19 12:31: pt arrived back from PACU from EGD is A&O able to make needs known. VSS, denies any pain or discomfort. tolerating clear liquids. Original Note: Addendum entered by Lauren Og R.N. 02/17/19 11:08: pt went down for EGD at this time. Original Note: day shift Pt NPO, up showered, is now back on IV fluids at 75ml/hr and sitting up in chair. Denies any dizziness or lightheaded. Denies chest pain, SOB and h/a. Call light within reach.
[2019-02-17 10:19] LABS: Hemoglobin 8.8 g/dL (12.0-16.0)
--- NOTE | 2019-02-17 11:00 | PM.CN ---
History of Present Illness Date Patient Seen: 02/17/19 Time Patient Seen: 11:00 Chief complaint: BLOOD PRESSURE IS HIGH Reason for consult: Anemia Requesting provider: Bette Chua Narrative: Patient is a woman admitted with shortness of breath weakness fatigue and anemia. I have been asked to evaluate her with endoscopy and colonoscopy possibly. Her last colonoscopy was 8 years ago. She actually was scheduled to have 1 last year but could not do the prep been canceled. She is tentatively on the schedule for September of this year. She says that her stool is sometimes dark brown but never black. No blood in her stool. She has had a couple of instances of left abdominal pain that had been fleeting. [facility] Medical History Vitamin D deficiency (Acute) Hypothyroid (Chronic) Surgical History H/O bilateral oophorectomy (Acute) Family History (Updated 02/16/19 @ 23:45 by MERCEDES Aguirre) Mother Lymphoma Father Colorectal cancer Social History Smoking Status: Former smoker Family History Mother Lymphoma Father Colorectal cancer Social History Smoking Status: Former smoker Meds Home Medications Medication Instructions Recorded Confirmed Type aspirin [Adult Low Dose Aspirin] 81 mg PO DAILY 02/16/19 02/16/19 History cholecalciferol (vitamin D3) 2,000 unit PO DAILY 02/16/19 02/16/19 History [Vitamin D3] levothyroxine [Synthroid] 50 mcg PO DAILY 02/16/19 02/16/19 History Allergies Allergy/AdvReac Type Severity Reaction Status Date / Time ampicillin [AMPICILLIN] Allergy Intermediate HIVES Verified 02/16/19 15:50 Penicillins [PENICILLINS] Allergy Intermediate HIVES Verified 02/16/19 15:50 Tetracyclines [TETRACYCLINES] Allergy Intermediate HIVES Verified 02/16/19 15:50 Review of Systems Review of Systems Short winded with minimal exertion when she was anemic. No chest pain or heart problems. No black or bloody bowel movements. No seizures or blackouts. Exam Vital Signs (past 8 hours): - 02/17/19 04:00 02/17/19 06:00 02/17/19 08:00 Temperature 97.5 F L 98.0 F Pulse Rate 70 77 Respiratory Rate 16 18 Blood Pressure 127/77 147/79 H Pulse Oximetry 97 99 98 02/17/19 09:06 Temperature Pulse Rate Respiratory Rate Blood Pressure Pulse Oximetry 99 Oxygen Delivery Method Room Air Narrative Exam Narrative: Operative no apparent distress. Eyes nonicteric. Lungs are clear to auscultation without rales or rhonchi. Heart regular rate and rhythm without murmur gallop. Abdomen is scaphoid soft nontender without masses. Liver and spleen are not enlarged. Patient is alert and oriented x3. Objective Labs Result Diagrams: 02/17/19 10:05 02/17/19 02:09 Labs: Laboratory Results - last 24 hr 02/16/19 02/16/19 02/16/19 16:00 16:00 16:03 WBC 7.7 RBC 2.85 L Hgb 6.9 L* Hct 21.7 L MCV 76.2 L MCH 24.3 L MCHC 31.8 RDW 14.1 Plt Count 444 H Neut % (Auto) 67.2 Lymph % (Auto) 23.9 L [place] % (Auto) 6.3 Eos % (Auto) 2.1 Baso % (Auto) 0.5 Neut # (Auto) 5200 Lymph # (Auto) 1800 [place] # (Auto) 500 Eos # (Auto) 200 Baso # (Auto) 0 Percent Retic 1.6 PT INR APTT Sodium Potassium Chloride Carbon Dioxide BUN Creatinine Estimated GFR BUN/Creatinine Ratio Glucose Calcium Iron 19 L TIBC 456 % Saturation 4 L Transferrin 343 Ferritin Total Bilirubin AST ALT Alkaline Phosphatase Total Creatine Kinase CK-MB (CK-2) CK-MB (CK-2) Rel Index Troponin I Total Protein Albumin Globulin Albumin/Globulin Ratio Lipase TSH Blood Type Antibody Screen Crossmatch 02/16/19 02/16/19 02/16/19 16:03 16:03 16:45 WBC RBC Hgb Hct MCV MCH MCHC RDW Plt Count Neut % (Auto) Lymph % (Auto) [place] % (Auto) Eos % (Auto) Baso % (Auto) Neut # (Auto) Lymph # (Auto) [place] # (Auto) Eos # (Auto) Baso # (Auto) Percent Retic PT 10.8 INR 0.9 APTT 31 Sodium 135 L Potassium 3.9 Chloride 100 Carbon Dioxide 26 BUN 22 H Creatinine 0.90 Estimated GFR > 60.0 BUN/Creatinine Ratio 24.4 H Glucose 94 Calcium 8.6 Iron TIBC % Saturation Transferrin Ferritin 4.5 L Total Bilirubin < 0.1 L AST 25 ALT 24 Alkaline Phosphatase 72 Total Creatine Kinase 124 CK-MB (CK-2) 2.19 CK-MB (CK-2) Rel Index 1.8 Troponin I < 0.012 Total Protein 6.6 Albumin 4.1 Globulin 2.5 Albumin/Globulin Ratio 1.6 Lipase 93 TSH Blood Type O Positive Antibody Screen Negative Crossmatch See Detail 02/17/19 02/17/19 02/17/19 02:09 02:09 02:09 WBC 5.6 RBC 3.39 L Hgb 8.8 L Hct 26.3 L MCV 77.4 L MCH 26.1 MCHC 33.7 RDW 15.4 H Plt Count 424 H Neut % (Auto) 58.4 Lymph % (Auto) 29.7 [place] % (Auto) 8.5 Eos % (Auto) 2.7 Baso % (Auto) 0.7 Neut # (Auto) 3300 Lymph # (Auto) 1700 [place] # (Auto) 500 Eos # (Auto) 200 Baso # (Auto) 0 Percent Retic PT INR APTT Sodium 138 Potassium 3.5 Chloride 101 Carbon Dioxide 31 BUN 17 Creatinine 0.80 Estimated GFR > 60.0 BUN/Creatinine Ratio 21.3 Glucose 94 Calcium 9.1 Iron TIBC % Saturation Transferrin Ferritin Total Bilirubin AST ALT Alkaline Phosphatase Total Creatine Kinase CK-MB (CK-2) CK-MB (CK-2) Rel Index Troponin I Total Protein Albumin Globulin Albumin/Globulin Ratio Lipase TSH 1.62 Blood Type Antibody Screen Crossmatch 02/17/19 10:05 WBC RBC Hgb 8.8 L Hct 27.0 L MCV MCH MCHC RDW Plt Count Neut % (Auto) Lymph % (Auto) [place] % (Auto) Eos % (Auto) Baso % (Auto) Neut # (Auto) Lymph # (Auto) [place] # (Auto) Eos # (Auto) Baso # (Auto) Percent Retic PT INR APTT Sodium Potassium Chloride Carbon Dioxide BUN Creatinine Estimated GFR BUN/Creatinine Ratio Glucose Calcium Iron TIBC % Saturation Transferrin Ferritin Total Bilirubin AST ALT Alkaline Phosphatase Total Creatine Kinase CK-MB (CK-2) CK-MB (CK-2) Rel Index Troponin I Total Protein Albumin Globulin Albumin/Globulin Ratio Lipase TSH Blood Type Antibody Screen Crossmatch Assessment & Plan Assessment & Plan narrative: Patient with anemia she has received 1 unit of blood. I was asked to scope her. She has been NPO. I discussed possibly bowel prepping her in doing both scopes tomorrow. She vacillate id a bit but ultimately decided to just have an upper scope done today. If it shows something she will go home and have the colonoscopy electively. If it does not she will consider staying with a bowel prep in having a colonoscopy tomorrow. Risks of bleeding and perforation were discussed. She appears to understand and wishes to proceed.
--- NOTE | 2019-02-17 11:13 | PM.PREOP ---
Pre-operative Note Interval Note History & Physical reviewed/Exam performed by Physician: Yes Changes to H&P: No ASA Class (for procedural sedation): I
[2019-02-17] MEDS: LIDOCAINE 4% SOLN 50 ML 20 ML TOP (11:28)
[2019-02-17] MEDS: TETRACAINE/BENZOCAINE/BUTAMBEN (CETACAINE) BOTTLE 1 SPRAY TOP (11:28)
[2019-02-17] MEDS: fentaNYL 250 MCG/5 ML INJ IV (11:29)
[2019-02-17] MEDS: MIDAZOLAM 5 MG/5 ML VIAL IV (11:30)
--- NOTE | 2019-02-17 11:42 | P.OP.ENDO_ITS ---
Operative Date/Time/Diagnoses Date of procedure: 02/17/19 Time of procedure: 11:38 Pre-op diagnosis: Anemia Post-op diagnosis: same (Superficial gastric ulcers) Procedure & Clinicians Study performed: EGD with cold biopsy Same procedure as scheduled: Yes Indications: Determine cause of anemia Surgeon: Pedro Gonzales Procedure Notes SCOAP/Timeout: Performed Procedure in detail: The patient had topical anesthetic applied to oropharynx. She was placed in left lateral decubitus position and underwent IV sedation directed by the surgeon consisting of fentanyl and Versed. A bite block was inserted and the scope was advanced through it into the esophagus. The esophagus was unremarkable. GE junction was noted at 35 cm from the incisors. The stomach insufflated well. There were superficial discrete inflammatory les ions seen in the body, antrum or at the incisura. The pyloric channel was patent. The duodenum was unremarkable to the 3rd part. The scope was brought back into the stomach and retroflexed. The proximal stomach notable for a hiatal hernia.. The scope was straightened and biopsies were taken of the ulcerative areas. The scope was then brought out through the esophagus again. No lesions were seen. The scope was removed and the patient tolerated the procedure well. Scope withdrawal time: Not applicable Sedation minutes: 10 Findings: gastric ulcer (Superficial) Specimen(s): other (Random stomach) Complications: none Recommendations: Start medication(s) (Proton pump inhibitor) Plan for aftercare: Colonoscopy can be done as an outpatient. It should be done promptly however. I am not convinced these ulcers of the source of her anemia, though they certainly could be. Follow up: weeks (Four) Disposition: PACU
--- NOTE | 2019-02-17 14:40 | CM.DANOTE ---
Discharge Planning/Care Management DCP: assessment: initiated: Case received this morning, EMR reviewed. Discussed in Team Rounds. Pt is a 68 year old female who admitted to care of hospitalist team last night last night. Consulting: Dr. Gonzales: EGD planned today. Payer: Medicare Admission status: OBS: confirmed by UR RN Adi Went to room earlier today to check in with pt and she was still in PACU. DCP team will follow for d/c issues and options. CM Discharge Assessment Start: 02/17/19 14:39 Freq: Status: Active Protocol: Document 02/17/19 14:40 ITV (Rec: 02/17/19 14:40 ITV [id number]) Discharge Planning Assessment Advance Directives? No Advance Directives on File No History Provided By Medical Record Review Status In Process Next Review Type Continued Stay Review
--- NOTE | 2019-02-17 16:52 | PC.NURSE ---
Addendum entered by Eden Conteh R.N. 02/17/19 17:09: Original Note: Pt sitting in chair, Denies any discomfort. SpO2 97% RA Tele shows NSR per ICU staff. Tele discontinued HL discontinued intact. Orders discharge received. Call light w/in reach.
--- NOTE | 2019-02-17 17:06 | PM.DS.1 ---
History of Present Illness Date Patient Seen: 02/16/19 Chief complaint: BLOOD PRESSURE IS HIGH Narrative: Written by Renetta LONG: The patient is a poor and unreliable historian. Patient was referred to the ED on 02/16/2019 by the walk-in clinic to be evaluated for shortness of breath. Patient reports having progressive dyspnea since November of 2018, more pronounced in the past 2 weeks. Associated symptoms include fatigue lightheadedness, and palpitations. Reports having few days of intermittent LLQ abdominal pain in the past two weeks, self resolved. Denies chest pain, nausea, vomiting, diarrhea, syncopal events, hemoptysis, hematemesis, and blood loss per rectum. Denies weight loss. No known prior history of anemia. Denies routine use of NSAIDs. On ASA 81 mg daily. No history of autoimmune GI disorders. She has had a colonoscopy 8 years ago, a polyp was found and resected. She was asked to follow up in 5 years, but failed to do so. It appears a colonoscopy was planned in January of 2018; however, patient was unable to tolerate the prep and decided not to continue with the procedure. Family history significant for colorectal cancer. Initial labs revealed a Hgb of 6.9 (prevously 13.4 on 12/2017). Patient's PMH is limited to hypothyroidisn, superficial thrombophlebitis, hiatal hernia, and potentially an esophageal motility disorder. ED Work-Up WBC 7.7 RBC 2.85 HGB 6.9 HCT 21.7 MCV 76.2 MCH 24.3 RDW 14.1 PLT 44 NA 135 K 3.9 CL 100 CA 8.6 CO2 26 BUN 22 CR 0.9 T. BILI < 0.1 AST 25 ALT 24 Alk Phos 72 CK 124 TROP < 0.012 CXR... no acute cardiopulmonary findings, large hiatal hernia Discharge Providers Date of admission: 02/16/19 19:42 Discharge Date: 02/17/19 Primary care physician: Josefina Marc MD Consults: 02/17/19 06:09 Consult to General Surgery Routine Comment: Consulting Provider: Pedro Gonzales Reason for consultation: GIB Has provider been notified: No Discharge provider: Bette Chua DO Summary Discharge Diagnosis: 1. Acute GI bleed, present on admission. Active. 2. Symptomatic acute blood loss anemia and secondary hypovolemia, present on admission. Resolved. 3. Hypertension, chronic, present on admission. Stable. 4. Hypothyroidism, chronic, present on admission. Stable. Hospital Course: Mk Doty is a 68-year-old female with a past medical history significant for hypothyroidism who presented with progressive shortness of breath. 1. Acute GI bleed, present on admission. Active. -Patient has had progressive dyspnea since 11/2018 and it has been more pronounced in the past 2 weeksb with associated fatigue, lightheadedness, and palpitations. Likely has had a slow insidious bleed/ooze. -General surgery, Dr. Gonzales, was consulted and performed EGD. EGD demonstrated superficial gastric ulcers which may possibly be source versus lower pathology. Patient is overdue for colonoscopy and will have performed outpatient in the near future. -Continued Protonix 40 mg twice daily for the next 2-4 weeks or as instructed by General surgery. Discontinued aspirin. 2. Symptomatic acute blood loss anemia and secondary hypovolemia, present on admission. Resolved. -Patient has a history of hemorrhoids and a family history of colorectal cancer and lymphoma. -Received 1 unit of PRBC. Continued normal saline at 75 mL/hr until adequately hydrated. -Trend hemoglobin and hematocrit which were stable. No overt bleeding. -Iron panel demonstrated iron deficiency anemia likely secondary to GI bleed. Will defer initiation of iron supplementation to PCP. 3. Hypertension, chronic, present on admission. Stable. -BP mildly elevated on admission. Continued to trend and within normal limits. 4. Hypothyroidism, chronic, present on admission. Stable. -TSH normal at 1.62. -Continue levothyroxine 50 mcg daily. Status at Discharge Functional status at discharge: independent ambulation Overall status at discharge: patient is back to baseline Exam Vital Signs (past 8 hours): - 02/17/19 11:18 02/17/19 11:43 02/17/19 11:48 Temperature 98.4 F 99.7 F H Pulse Rate 66 65 62 Respiratory Rate 16 16 17 Blood Pressure 154/86 H 92/52 L 97/48 L Pulse Oximetry 100 95 95 02/17/19 11:53 02/17/19 11:58 02/17/19 12:10 Temperature 98.2 F 98.4 F Pulse Rate 68 69 64 Respiratory Rate 17 18 18 Blood Pressure 107/56 L 103/64 136/75 Pulse Oximetry 94 95 100 02/17/19 12:40 02/17/19 13:00 02/17/19 13:10 Temperature 98.4 F 97.9 F Pulse Rate 55 L 68 Respiratory Rate 16 16 Blood Pressure 105/56 L 98/52 L Pulse Oximetry 96 98 97 02/17/19 15:00 02/17/19 15:57 Temperature 97.6 F Pulse Rate 73 Respiratory Rate 15 Blood Pressure 126/56 L Pulse Oximetry 97 100 Oxygen Delivery Method Room Air Narrative Exam Narrative: General: Older female sitting in bedside chair and in no acute distress, appears older than stated age, well-developed, well-nourished, appropriately interactive. HEENT: Normocephalic, atraumatic. External ears without defect. Pupils equal, round, and reactive to light. Anicteric sclerae, moist conjunctivae, and no lid lag. Oropharynx free of erythema and cobble stoning with moist mucosa. Neck: Supple with full range of motion. No lymphadenopathy or thyromegaly. Cardiovascular: Regular rate and rhythm without murmurs, rubs, or gallops appreciated Pulmonary: Clear to auscultation bilaterally without crackles, wheezes, or rhonchi. Normal respiratory effort with no use of accessory muscles. Abdomen: Soft, bowel sounds present, mild discomfort to palpation in left side of abdomen, nondistended. No hepatosplenomegaly or masses appreciated. Extremities: No clubbing, cyanosis, or edema. Skin: Normal temperature, turgor, and texture; no rash, ulcers, or subcutaneous nodules appreciated. Neurological: Cranial nerves grossly intact. Psychiatric: Normal mood and affect. Alert and oriented to person, place, and time. Objective Labs Result Diagrams: 02/17/19 10:05 02/17/19 02:09 Labs: Laboratory Results - last 24 hr 02/16/19 02/16/19 02/16/19 16:00 16:00 16:03 WBC RBC Hgb Hct MCV MCH MCHC RDW Plt Count Neut % (Auto) Lymph % (Auto) Bowie % (Auto) Eos % (Auto) Baso % (Auto) Neut # (Auto) Lymph # (Auto) Bowie # (Auto) Eos # (Auto) Baso # (Auto) Percent Retic 1.6 Sodium 135 L Potassium 3.9 Chloride 100 Carbon Dioxide 26 BUN 22 H Creatinine 0.90 Estimated GFR > 60.0 BUN/Creatinine Ratio 24.4 H Glucose 94 Calcium 8.6 Iron 19 L TIBC 456 % Saturation 4 L Transferrin 343 Ferritin 4.5 L Total Bilirubin < 0.1 L AST 25 ALT 24 Alkaline Phosphatase 72 Total Creatine Kinase 124 CK-MB (CK-2) 2.19 CK-MB (CK-2) Rel Index 1.8 Troponin I < 0.012 Total Protein 6.6 Albumin 4.1 Globulin 2.5 Albumin/Globulin Ratio 1.6 Lipase 93 TSH Blood Type Antibody Screen Crossmatch 02/16/19 02/17/19 02/17/19 16:45 02:09 02:09 WBC 5.6 RBC 3.39 L Hgb 8.8 L Hct 26.3 L MCV 77.4 L MCH 26.1 MCHC 33.7 RDW 15.4 H Plt Count 424 H Neut % (Auto) 58.4 Lymph % (Auto) 29.7 Bowie % (Auto) 8.5 Eos % (Auto) 2.7 Baso % (Auto) 0.7 Neut # (Auto) 3300 Lymph # (Auto) 1700 Bowie # (Auto) 500 Eos # (Auto) 200 Baso # (Auto) 0 Percent Retic Sodium 138 Potassium 3.5 Chloride 101 Carbon Dioxide 31 BUN 17 Creatinine 0.80 Estimated GFR > 60.0 BUN/Creatinine Ratio 21.3 Glucose 94 Calcium 9.1 Iron TIBC % Saturation Transferrin Ferritin Total Bilirubin AST ALT Alkaline Phosphatase Total Creatine Kinase CK-MB (CK-2) CK-MB (CK-2) Rel Index Troponin I Total Protein Albumin Globulin Albumin/Globulin Ratio Lipase TSH Blood Type O Positive Antibody Screen Negative Crossmatch See Detail 02/17/19 02/17/19 02:09 10:05 WBC RBC Hgb 8.8 L Hct 27.0 L MCV MCH MCHC RDW Plt Count Neut % (Auto) Lymph % (Auto) Bowie % (Auto) Eos % (Auto) Baso % (Auto) Neut # (Auto) Lymph # (Auto) Bowie # (Auto) Eos # (Auto) Baso # (Auto) Percent Retic Sodium Potassium Chloride Carbon Dioxide BUN Creatinine Estimated GFR BUN/Creatinine Ratio Glucose Calcium Iron TIBC % Saturation Transferrin Ferritin Total Bilirubin AST ALT Alkaline Phosphatase Total Creatine Kinase CK-MB (CK-2) CK-MB (CK-2) Rel Index Troponin I Total Protein Albumin Globulin Albumin/Globulin Ratio Lipase TSH 1.62 Blood Type Antibody Screen Crossmatch Discharge Plan Discharge Plan Patient Disposition: Home Discharge comment: You are being discharged home. Your EGD or upper scope demonstrated small superficial ulcers in your stomach which may or may not be the cause of your slow bleeding. You were prescribed Protonix 40 mg twice daily to continue for 2-4 weeks or as instructed by surgery. Please schedule a colonoscopy with Dr. Gonzales for the near future as there may be a more obvious source of bleeding. If your symptoms return or you have shortness of breath, palpitations, lightheadedness or dizziness, presyncope or syncope please see a medical provider or call 911 immediately. Discharge Med Rec/Prescriptions Prescriptions: New pantoprazole 40 mg tablet,delayed release (DR/EC) 40 mg PO BID Qty: 60 RF: 0 Continued levothyroxine 50 mcg tablet 50 mcg PO DAILY RF: 0 cholecalciferol (vitamin D3) [Vitamin D3] 1,000 unit Capsule 2,000 unit PO DAILY RF: 0 Discontinued aspirin [Adult Low Dose Aspirin] 81 mg Tablet,Delayed Release (Dr/Ec) 81 mg PO DAILY RF: 0 Follow up/Referrals: Josefina Marc MD [Primary Care Provider] - Provider Discharge Instructions Diet: Diet as Tolerated, Low-fat, Low-sodium and Low-cholesterol Visit Report/Discharge Packet Instructions: Gastrointestinal Bleeding Discharge Data Primary Care Provider: Josefina Mrac Attending Provider: Renetta Francois Admit Date/Time: 02/16/19 19:42 Quality VTE Deep Vein Thrombosis/Pulmonary Embolism Present on Admission: No
--- NOTE | 2019-04-13 14:55 | PC.NURSE ---
Late entry- Sodium chloride 0.9% infusion completed 02/17 at 1355 per nurse note.
== END 2019-02-17 18:25 | disposition home or self-care (01) ==
LOC: ED 18:54 → AC 19:42
PROVIDERS: Specialist; Admitting Provider Nurse Practitioner Gerontology; Emergency Provider Emergency Medicine; Family Provider Family Medicine; PCP Family Medicine; Visit Provider Nurse Practitioner Gerontology
PROC: 0DJ08ZZ Inspection of Upper Intestinal Tract, Via Natural or Artificial Opening Endoscopic (ICD-10-PCS; CPT 43235; principal; 2019-02-17 11:15)
DX: D62 Acute posthemorrhagic anemia (principal); K25.9 Gastric ulcer, unspecified as acute or chronic, without hemorrhage or perforation; R06.02 Shortness of breath; K44.9 Diaphragmatic hernia without obstruction or gangrene; E03.9 Hypothyroidism, unspecified; E55.9 Vitamin D deficiency, unspecified; E86.1 Hypovolemia; I10 Essential (primary) hypertension
CPT/HCPCS: 43239; 36415; 36430; 36591; 71046; 80048; 80053; 82550; 82553; 82728; 83540; 83550; 83690; 84443; 84484; 85014; 85018; 85025; 85045; 85610; 85730; 86850; 86900; 86901; 88305; 88342; 93005; 93010; 96361; 96374; 96375; 96376; 99152; 99224; 99283; 99285; G0378; P9016; C9113; J1940; J2250; J3010

== ENCOUNTER 2019-02-24 10:17 | Day surgery (SDC) | payer MEDICARE, SELFPAY ==
[2019-02-16 19:59] VITALS: BMI 27.4
[2019-02-24 10:39] VITALS: BP 164/84; PULSE 63; RESP 16; TEMP 36.8; O2SAT 100; BMI 27.1
--- NOTE | 2019-02-24 11:18 | PM.PREOP ---
Pre-operative Note Interval Note History & Physical reviewed/Exam performed by Physician: Yes Changes to H&P: Yes H&P completed within 30 days and has changed as indicated here:: Since my evaluation/consultation on 02/17 patient has had an EGD that showed gastric ulcers. She has been taking a proton pump inhibitor twice a day and feels much better. She is here now for a colonoscopy. She did an outpatient bowel prep. I have discussed the procedure with her including risks of bleeding, perforation, failure to find removal lesions in the potential tattoo. She appears to understand wishes to proceed ASA Class (for procedural sedation): II
[2019-02-24] MEDS: fentaNYL 250 MCG/5 ML INJ IV (11:37)
[2019-02-24] MEDS: MIDAZOLAM 5 MG/5 ML VIAL IV (11:38)
--- NOTE | 2019-02-24 11:48 | PM.OP.ENDO ---
Operative Date/Time/Diagnoses Date of procedure: 02/24/19 Time of procedure: 11:49 Pre-op diagnosis: History of anemia. Post-op diagnosis: same (Sigmoid diverticulosis. Otherwise normal exam.) Procedure & Clinicians Study performed: Colonoscopy Same procedure as scheduled: Yes Indications: Determine if there is a colonic source of her anemia. Last exam was 8 years ago Surgeon: Pedro Gonzales Procedure Notes SCOAP/Timeout: Performed Procedure in detail: The patient was placed in the left lateral decubitus position and underwent IV sedation directed by the surgeon consisting of fentanyl and Versed. Digital exam was normal. The scope was inserted and advanced through the rectum into the sigmoid, descending, transverse, and ascending colon. Patient was noted to have sigmoid diverticulosis. The cecum was reached identified by the ileocecal valve and the appendiceal opening. The ileocecal valve was successfully cannulated. The terminal ileum was normal in appearance. The scope was gradually brought out. No Polyps were found. The scope ultimately was retroflexed in the rectum. The appearance was normal. The scope was removed and the patient tolerated the procedure well. prep was good Scope withdrawal time: Almost 7-1/2 minutes Sedation minutes: 20 Findings: diverticulosis Specimen(s): none sent Complications: none Recommendations: Colonscopy in 10 years Follow up: weeks (Needs repeat EGD to confirm healing of her gastric ulcers) Disposition: PACU
[2019-02-24 11:58] VITALS: BP 104/62; PULSE 65; RESP 15; TEMP 36.2; O2SAT 95
[2019-02-24 12:03] VITALS: BP 103/68; PULSE 60; RESP 16; O2SAT 95
[2019-02-24 12:06] VITALS: BP 95/60; PULSE 64; RESP 16; O2SAT 97
[2019-02-24 12:19] VITALS: BP 104/58; PULSE 65; RESP 16; TEMP 36.9; O2SAT 100
== END 2019-02-24 12:34 | disposition home or self-care (01) ==
PROVIDERS: PCP Family Medicine; Visit Provider Specialist
PROC: 0DJD8ZZ Inspection of Lower Intestinal Tract, Via Natural or Artificial Opening Endoscopic (ICD-10-PCS; CPT 45378; principal; 2019-02-24 11:45)
DX: D64.9 Anemia, unspecified (principal); K57.30 Diverticulosis of large intestine without perforation or abscess without bleeding; E03.9 Hypothyroidism, unspecified; E55.9 Vitamin D deficiency, unspecified; Z87.891 Personal history of nicotine dependence
CPT/HCPCS: 45378; 99152; J2250; J3010

== ENCOUNTER → 2020-12-12 08:00 | Outpatient (CLI) | payer MEDICARE, SELFPAY ==
[2019-02-16 19:59] VITALS: BMI 27.4
[2020-12-12 09:34] LABS: Add Manual Diff / Slide Review NO; Basophils Absolute Auto 0 /uL (0-100); Basophils Percent Auto 0.5 % (0-2); Eosinophils Absolute Auto 100 /uL (0-450); Eosinophils Percent Auto 1.7 % (2-4); Hematocrit 24.6 % (36-46); Lymphocytes Absolute Auto 1600 /uL (1100-4500); Lymphocytes Percent Auto 27.6 % (25-40); Mean Corpuscular HGB Conc 32.7 % (30-36); Mean Corpuscular Hemoglobin 24.9 PG (26-34); Mean Corpuscular Volume 76.1 fL (80-100); Monocytes Absolute Auto 500 /uL (0-900); Monocytes Percent Auto 7.9 % (3-14); Neutrophils Absolute Auto 3600 /uL (1500-7000); Neutrophils Percent Auto 62.3 % (50-75); Platelet Count 488 X10^3/uL (150-400); Red Blood Cell Count 3.23 X10^6/uL (4.0-5.2); Red Cell Distribution Width 14.3 % (11.6-14.8); White Blood Cell Count 5.7 X10^3/uL (4.5-11.0)
[2020-12-12 09:51] LABS: HEMOLYSIS < 15 (0-50); Iron < 10 ug/dL (37-170)
[2020-12-12 09:53] LABS: Alanine Aminotransferase 13 IU/L (<35); Albumin 3.6 g/dL (3.5-5.0); Albumin Globulin Ratio 1.3 (1.0-2.8); Alkaline Phosphatase 81 U/L (38-126); Aspartate Aminotransferase 22 IU/L (14-36); Bilirubin Total 0.1 mg/dL (0.2-1.3); Blood Urea Nitrogen 18 mg/dL (7-17); Calcium 8.8 mg/dL (8.4-10.2); Carbon Dioxide 30 mmol/L (22-32); Chloride 102 mmol/L (98-107); Cholesterol 182 mg/dL (140-199); Estimated Glomerular Filt Rate > 60.0 mL/min (>60); Globulin 2.7 g/dL (1.7-4.1); Glucose 95 mg/dL (80-110); HDL Cholesterol 76 mg/dL (40-60); HEMOLYSIS < 15 (0-50); LDL Cholesterol Calculated 92 mg/dL (<100); Potassium 4.4 mmol/L (3.4-5.1); Sodium 134 mmol/L (137-145); Total Protein 6.3 g/dL (6.3-8.2); Triglycerides 72 mg/dL (35-150)
[2020-12-12 10:03] LABS: Percent Iron Saturation 2 % (15-50); Total Iron Binding Capacity 434 ug/dL (265-497); Transferrin 328 mg/dL (206-381)
[2020-12-12 10:10] LABS: Vitamin D 25 Hydroxy (D3) 22.1 ng/mL (30.0-100.0)
[2020-12-12 10:30] LABS: TSH w/ Reflex to FT4 0.68 uIU/mL (0.47-4.68)
[2020-12-12 10:32] LABS: Ferritin 6 ng/mL (11-264)
[2020-12-12 11:02] LABS: Folate 15.4 ng/mL (2.76-20.0); Vitamin B12 415 pg/mL (239-931)
--- NOTE | 2020-12-12 13:39 | DI.RAD.S_ITS ---
PROCEDURE: XR DEXA AXIAL SKELETON INDICATIONS: Osteoporosis screening COMPARISON: None. FINDINGS: This blank DEXA report has been sent in error by the PACS system. The correct and complete report will be forthcoming in 1-2 days. Thank you for your patience and understanding. Dictated by: Amando Hernandez M.D. on 12/12/2020 at 17:18 Approved by: Amando Hernandez M.D. on 12/12/2020 at 17:18
[2020-12-13 16:08] LABS: Tissue Transglutaminase IgA <2 U/mL (0-3); Tissue Transglutaminase IgG 3 U/mL (0-5)
== END ==
PROVIDERS: PCP Student in an Organized Health Care Education/Training Program; Referring Provider Student in an Organized Health Care Education/Training Program; Visit Provider Student in an Organized Health Care Education/Training Program
DX: Z13.820 Encounter for screening for osteoporosis (principal); M85.852 Other specified disorders of bone density and structure, left thigh; Z78.0 Asymptomatic menopausal state; E03.9 Hypothyroidism, unspecified; D64.9 Anemia, unspecified; E55.9 Vitamin D deficiency, unspecified; K90.41 Non-celiac gluten sensitivity; Z82.62 Family history of osteoporosis
CPT/HCPCS: 36415; 77080; 80053; 80061; 82306; 82607; 82728; 82746; 83516; 83540; 83550; 84443; 85025

== ENCOUNTER 2021-01-04 11:25 | Emergency (ER) | payer MEDICARE, SELFPAY ==
[2019-02-16 19:59] VITALS: BMI 27.4
[2021-01-04] VITALS (7 sets, daily range): BP systolic 143–189; BP diastolic 75–90; PULSE 73–83; RESP 16–18; TEMP 36.2–37.4; O2SAT 99–100; BMI 25.4
--- NOTE | 2021-01-04 11:55 | DI.US.S_ITS ---
PROCEDURE: US PERIPH VENOUS LOW EXTREM LT INDICATIONS: redness/pain TECHNIQUE: Real-time imaging, as well as color and pulse Doppler interrogation, were performed of the lower extremity deep veins from the inguinal ligament to the popliteal fossa. COMPARISON: None. FINDINGS: The common femoral, femoral and popliteal veins are normally compressible, and free of intraluminal thrombus. Color and pulse Doppler demonstrate normal phasic intraluminal flow. There is normal augmentation response to distal compression maneuver. There is occlusive thrombus demonstrated within the visualized greater saphenous vein. IMPRESSION: 1. Occlusive thrombus demonstrated within the superficial greater saphenous vein. 2. No deep venous thrombosis demonstrated in the left lower extremity. Dictated by: Adi Lopes M.D. on 01/04/2021 at 11:36 Approved by: Adi Lopes M.D. on 01/04/2021 at 12:01
[2021-01-04 13:11] LABS: Add Manual Diff / Slide Review NO; Basophils Absolute Auto 0 /uL (0-100); Basophils Percent Auto 0.4 % (0-2); Eosinophils Absolute Auto 100 /uL (0-450); Eosinophils Percent Auto 0.7 % (2-4); Hematocrit 27.9 % (36-46); Hemoglobin 8.9 g/dL (12.0-16.0); Lymphocytes Absolute Auto 1100 /uL (1100-4500); Lymphocytes Percent Auto 12.5 % (25-40); Mean Corpuscular Hemoglobin 25.4 PG (26-34); Mean Corpuscular Volume 79.3 fL (80-100); Monocytes Absolute Auto 800 /uL (0-900); Monocytes Percent Auto 8.9 % (3-14); Neutrophils Absolute Auto 6700 /uL (1500-7000); Neutrophils Percent Auto 77.5 % (50-75); Platelet Count 399 X10^3/uL (150-400); Red Blood Cell Count 3.52 X10^6/uL (4.0-5.2); Red Cell Distribution Width 20.5 % (11.6-14.8); White Blood Cell Count 8.6 X10^3/uL (4.5-11.0)
[2021-01-04 13:17] LABS: Blood Urea Nitrogen 14 mg/dL (7-17); Calcium 8.8 mg/dL (8.4-10.2); Carbon Dioxide 28 mmol/L (22-32); Chloride 100 mmol/L (98-107); Estimated Glomerular Filt Rate > 60.0 mL/min (>60); Glucose 100 mg/dL (80-110); HEMOLYSIS < 15 (0-50); Potassium 3.9 mmol/L (3.4-5.1); Sodium 133 mmol/L (137-145)
[2021-01-04 13:33] LABS: Procalcitonin 0.03 ng/mL (<0.5)
[2021-01-04 13:40] LABS: Anisocytosis 2+; Poikilocytosis 1+
--- NOTE | 2021-01-04 14:25 | DI.CT.S_ITS ---
PROCEDURE: CT ANGIO CHEST PE PROTOCOL INDICATIONS: sob, chest pain, hx clots TECHNIQUE: After the administration of intravenous contrast, 2 mm thick sections acquired from the pulmonary apices to the posterior costophrenic angles. 3-dimensional maximum intensity projection (MIP) coronal and sagittal reformats were then acquired through the thorax. For radiation dose reduction, the following was used: automated exposure control, adjustment of mA and/or kV according to patient size. COMPARISON: [facility], , PERIP VENOUS LOW EXTREM LT, 01/04/2021, 12:17. FINDINGS: Image quality: Excellent. Pulmonary arteries: Pulmonary arteries are normal in size, and demonstrate no intraluminal filling defects to suggest central pulmonary embolism. Lungs and pleura: Lungs are clear. No pleural effusions or pneumothorax. Central and peripheral airways are patent. Mediastinum: Heart size is normal, without pericardial effusion. No mediastinal or hilar adenopathy. Thoracic aorta is normal in caliber and enhancement. Esophagus is normal in caliber, with moderate to large hiatal hernia. Bones and chest wall: No suspicious bony lesions. Ribs and thoracic spine appear intact throughout. Thyroid gland is unremarkable. No axillary or supraclavicular adenopathy. Abdomen: Partially visualized left renal cyst. Otherwise, visualized upper abdominal solid organs appear normal in the early arterial phase of enhancement. IMPRESSION: 1. No pulmonary embolism. Lungs are clear. Dictated by: Jacquelin You M.D. on 01/04/2021 at 15:00 Approved by: Jacquelin You M.D. on 01/04/2021 at 15:06
[2021-01-04 14:26] LABS: Prothrombin Time 12.1 SECONDS (10.1-12.7)
[2021-01-04 14:29] LABS: PTT Partial Thromboplastin Tim 34 SECONDS (26.4-36.2)
[2021-01-04 14:34] LABS: Creatine Kinase 73 U/L (30-135)
[2021-01-04 14:48] LABS: NT-proBNP (BNP-Adult 18+) 144 pg/mL (<125); Troponin I < 0.012 ng/mL (0.01-0.034)
--- NOTE | 2021-01-04 14:48 | ED_ITS ---
HPI - Extremity Problem <ASHLEY Morton - Last Filed: 01/04/21 15:57> General Chief complaint: Extremity Problem,Nontraumatic Stated complaint: left leg phlebitis x28 days Time Seen by Provider: 01/04/21 13:04 Source: patient Mode of arrival: Ambulatory Limitations: no limitations History of Present Illness HPI Narrative: The patient is a 7-year-old female former smoker with history of phlebitis who presents with a chief complaint of left leg phlebitis for the past month. She states that it started below her knee, then went up to her knee and now is up to her thigh. She does have history of a GI bleed for which she was admitted at this facility. She notes that somebody at the walk-in clinic that she had cellulitis and she got antibiotics, so she choose to come to the [facility] department rather than the walk-in clinic today. She does complain of some nonspecific palpitations and shortness of breath. She does say that she had a heart twinge on the way home from her primary care provider's a while ago. She denies any fevers muscle aches or chills. She denies any cough or congestion. She states her primary care provider is Dr. Reich Related Data Previous Rx's Medication Instructions Recorded cholecalciferol (vitamin D3) 25 25 mcg PO DAILY #90 cap 12/28/20 mcg (1,000 unit) capsule levothyroxine 50 mcg tablet 50 mcg PO DAILY #90 tab 12/28/20 Cozaar 50 mg tablet 50 mg PO DAILY #90 tab NS 01/04/21 Allergies Allergy/AdvReac Type Severity Reaction Status Date / Time ampicillin [AMPICILLIN] Allergy Intermediate HIVES Verified 01/04/21 14:28 Penicillins [PENICILLINS] Allergy Intermediate HIVES Verified 01/04/21 14:28 Tetracyclines [TETRACYCLINES] Allergy Intermediate HIVES Verified 01/04/21 14:28 Review of Systems <ASHLEY Morton - Last Filed: 01/04/21 15:57> Review of Systems Narrative: GENERAL: Denies chills, fatigue, malaise, fever, sweats. HEENT: Denies sinus pain, ear pain, sore throat, difficulty swallowing, d izziness. RESPIRATORY: Denies dyspnea, cough, wheezing, hemoptysis, sputum. CARDIOVASCULAR: Denies chest pain, palpitations, orthopnea, edema, GASTROINTESTINAL: Denies nausea, vomiting, abdominal pain, diarrhea, constipation, melena. : Denies dysuria, frequency, incontinence, hematuria, urinary retention. MUSCULOSKELETAL: See HPI SKIN: See HPI NEUROLOGIC: Denies weakness, headache, numbness, change in speech, confusion, seizures, incoordination. PSYCHIATRIC: No concerning psychosocial issues. 12 point review of systems is negative except for those stated above Patient History <ASHLEY Morton - Last Filed: 01/04/21 15:57> Medical History (Updated 01/04/21 @ 15:46 by ASHLEY Morton) GI bleed Hypothyroid Nasal bone fx-closed (03/25/03) Vitamin D deficiency Surgical History H/O bilateral oophorectomy Family History Mother Lymphoma Father Colorectal cancer Social History household members: none Smoking Status: Former smoker Smoking Status: Former smoker alcohol intake frequency: 0-2 drinks per day Substance Use Type: does not use Exam <ASHLEY Morton - Last Filed: 01/04/21 15:57> Narrative Exam Narrative: GENERAL: This is a well-nourished, well-developed patient, in no acute HEAD: Atraumatic. Normocephalic. No temporal or scalp tenderness. EYES: Pupils equal round and reactive. Extraocular motions intact. No scleral icterus. No injection or drainage. ENT: Nose without bleeding, purulent drainage or septal hematoma. Wearing a mask Airway patent. NECK: Trachea midline. No JVD or lymphadenopathy. Supple, nontender, no meningeal signs. CARDIOVASCULAR: Regular rate and rhythm RESPIRATORY: Clear to auscultation. Breath sounds equal bilaterally. No wheezes, rales, or rhonchi. No cough. No increased respiratory effort or accessory muscle use. EXTREMITIES: Diffuse erythema noted on anterior aspect of left upper thigh. Positive pedal pulses. Using all extremities equally. BACK: Nontender without deformity or crepitance. No flank tenderness. NEURO: AOx3. SKIN: See extremity exam Initial Vital Signs Initial Vital Signs: Vital Signs Temperature 97.2 F L 01/04/21 11:46 Pulse Rate 82 01/04/21 11:46 Respiratory Rate 16 01/04/21 11:46 Blood Pressure 189/85 H 01/04/21 11:46 Pulse Oximetry 100 01/04/21 11:46 <Aura Chavez DO - Last Filed: 01/04/21 19:17> Initial Vital Signs Initial Vital Signs: Vital Signs Temperature 97.2 F L 01/04/21 11:46 Pulse Rate 82 01/04/21 11:46 Respiratory Rate 16 01/04/21 11:46 Blood Pressure 189/85 H 01/04/21 11:46 Pulse Oximetry 100 01/04/21 11:46 Scores <ASHLEY Morton - Last Filed: 01/04/21 15:57> GCS [place] coma scale eye opening: Spontaneous [place] coma scale verbal response: Orientated [place] coma scale motor response: Obey commands [place] coma scale total score: 15 Course <ASHLEY Morton - Last Filed: 01/04/21 15:57> Orders Ordered: ED Orders 01/04/21 11:55 US periph venous low extrem lt Stat 01/04/21 12:57 Basic Metabolic Panel Stat Complete Blood Count AUTO DIFF Stat NT-proBNP (BNP-Adult 18+) Stat Partial Thromboplastin Time Stat Procalcitonin Stat Prothrombin Time INR Stat Troponin & CK Cardiac Panel Stat 01/04/21 14:12 EKG-12 Lead Stat 01/04/21 14:25 CT angio chest PE protocol Stat Vital Signs Vital signs: Vital Signs - 8 hr 01/04/21 11:46 01/04/21 12:42 01/04/21 14:27 Temperature 97.2 F L 99.4 F Pulse Rate 82 83 76 Respiratory Rate 16 18 18 Blood Pressure 189/85 H 187/90 H 167/79 H Pulse Oximetry 100 100 100 01/04/21 14:30 01/04/21 14:54 01/04/21 15:00 Temperature Pulse Rate 73 79 73 Respiratory Rate Blood Pressure 159/77 H 165/80 H 161/79 H Pulse Oximetry 100 99 100 01/04/21 15:30 Temperature Pulse Rate 73 Respiratory Rate Blood Pressure 143/75 H Pulse Oximetry 100 <Aura Chavez DO - Last Filed: 01/04/21 19:17> Orders Ordered: ED Orders 01/04/21 11:55 US periph venous low extrem lt Stat 01/04/21 12:57 Basic Metabolic Panel Stat Complete Blood Count AUTO DIFF Stat NT-proBNP (BNP-Adult 18+) Stat Partial Thromboplastin Time Stat Procalcitonin Stat Prothrombin Time INR Stat Troponin & CK Cardiac Panel Stat 01/04/21 14:12 EKG-12 Lead Stat 01/04/21 14:25 CT angio chest PE protocol Stat Vital Signs Vital signs: Vital Signs - 8 hr 01/04/21 11:46 01/04/21 12:42 01/04/21 14:27 Temperature 97.2 F L 99.4 F Pulse Rate 82 83 76 Respiratory Rate 16 18 18 Blood Pressure 189/85 H 187/90 H 167/79 H Pulse Oximetry 100 100 100 01/04/21 14:30 01/04/21 14:54 01/04/21 15:00 Temperature Pulse Rate 73 79 73 Respiratory Rate Blood Pressure 159/77 H 165/80 H 161/79 H Pulse Oximetry 100 99 100 01/04/21 15:30 Temperature Pulse Rate 73 Respiratory Rate Blood Pressure 143/75 H Pulse Oximetry 100 MDM - Extremity (Nontraumatic) <SWATI Morton-BC - Last Filed: 01/04/21 15:57> Lab Data Result diagrams: 01/04/21 12:57 01/04/21 12:57 Labs: Lab Results 01/04/21 01/04/21 01/04/21 Range/Units 12:57 12:57 12:57 WBC 8.6 (4.5-11.0) X10^3/uL RBC 3.52 L (4.0-5.2) X10^6/uL Hgb 8.9 L (12.0-16.0) g/dL Hct 27.9 L (36-46) % MCV 79.3 L (80-100) fL MCH 25.4 L (26-34) PG MCHC 32.0 (30-36) % RDW 20.5 H (11.6-14.8) % Plt Count 399 (150-400) X10^3/uL Neut % (Auto) 77.5 H (50-75) % Lymph % (Auto) 12.5 L (25-40) % Kings % (Auto) 8.9 (3-14) % Eos % (Auto) 0.7 L (2-4) % Baso % (Auto) 0.4 (0-2) % Neut # (Auto) 6700 (6012-2719) /uL Lymph # (Auto) 1100 (7246-3710) /uL Kings # (Auto) 800 (0-900) /uL Eos # (Auto) 100 (0-450) /uL Baso # (Auto) 0 (0-100) /uL RBC Morphology Not Reportable Poikilocytosis 1+ H Anisocytosis 2+ H PT 12.1 (10.1-12.7) SECONDS INR 1.0 (0.9-1.3) APTT 34 (26.4-36.2) SECONDS Sodium 133 L (137-145) mmol/L Potassium 3.9 (3.4-5.1) mmol/L Chloride 100 (98-107) mmol/L Carbon Dioxide 28 (22-32) mmol/L BUN 14 (7-17) mg/dL Creatinine 0.70 (0.52-1.04) mg/dL Estimated GFR > 60.0 (>60) mL/min BUN/Creatinine Ratio 20.0 (6-22) Glucose 100 (80-110) mg/dL Calcium 8.8 (8.4-10.2) mg/dL Total Creatine Kinase (30-135) U/L CK-MB (CK-2) CK-MB (CK-2) Rel Index Troponin I (0.01-0.034) ng/mL NT-Pro-B Natriuret Pep (<125) pg/mL Procalcitonin 0.03 (<0.5) ng/mL 01/04/21 Range/Units 12:57 WBC (4.5-11.0) X10^3/uL RBC (4.0-5.2) X10^6/uL Hgb (12.0-16.0) g/dL Hct (36-46) % MCV (80-100) fL MCH (26-34) PG MCHC (30-36) % RDW (11.6-14.8) % Plt Count (150-400) X10^3/uL Neut % (Auto) (50-75) % Lymph % (Auto) (25-40) % Kings % (Auto) (3-14) % Eos % (Auto) (2-4) % Baso % (Auto) (0-2) % Neut # (Auto) (9805-0054) /uL Lymph # (Auto) (0025-7024) /uL Kings # (Auto) (0-900) /uL Eos # (Auto) (0-450) /uL Baso # (Auto) (0-100) /uL RBC Morphology Poikilocytosis Anisocytosis PT (10.1-12.7) SECONDS INR (0.9-1.3) APTT (26.4-36.2) SECONDS Sodium (137-145) mmol/L Potassium (3.4-5.1) mmol/L Chloride (98-107) mmol/L Carbon Dioxide (22-32) mmol/L BUN (7-17) mg/dL Creatinine (0.52-1.04) mg/dL Estimated GFR (>60) mL/min BUN/Creatinine Ratio (6-22) Glucose (80-110) mg/dL Calcium (8.4-10.2) mg/dL Total Creatine Kinase 73 (30-135) U/L CK-MB (CK-2) TNP CK-MB (CK-2) Rel Index TNP Troponin I < 0.012 (0.01-0.034) ng/mL NT-Pro-B Natriuret Pep 144 H (<125) pg/mL Procalcitonin (<0.5) ng/mL Imaging Data CT scan - chest: Radiologist's Impression: [address] Scan ReportSigned Patient: Deisy Doty [facility]#: [id number]: 1950Acct:[id number]/Sex: 70 / FDate of Service: 01/04/21Loc: EDAccession Number: [id number] Procedure: CT angio chest PE protocol Ordering Provider: Debora Martin [facility]- PROCEDURE: CT ANGIO CHEST PE PROTOCOL INDICATIONS: sob, chest pain, hx clots TECHNIQUE: After the administration of intravenous contrast, 2 mm thick sections acquired from the pulmonary apices to the posterior costophrenic angles. 3-dimensional maximum intensity projection (MIP) coronal and sagittal reformats were then acquired through the thorax. For radiation dose reduction, the following was used: automated exposure control, adjustment of mA and/or kV according to patient size. COMPARISON: [facility], [facility] VENOUS LOW EXTREM LT, 01/04/2021, 12:17. FINDINGS: Image quality: Excellent. Pulmonary arteries: Pulmonary arteries are normal in size, and demonstrate no intraluminal filling defects to suggest central pulmonary embolism. Lungs and pleura: Lungs are clear. No pleural effusions or pneumothorax. Central and peripheral airways are patent. Mediastinum: Heart size is normal, without pericardial effusion. No mediastinal or hilar adenopathy. Thoracic aorta is normal in caliber and enhancement. Esophagus is normal in caliber, with moderate to large hiatal hernia. Bones and chest wall: No suspicious bony lesions. Ribs and thoracic spine appear intact throughout. Thyroid gland is unremarkable. No axillary or supraclavicular edy opathy. Abdomen: Partially visualized left renal cyst. Otherwise, visualized upper abdominal solid organs appear normal in the early arterial phase of enhancement. IMPRESSION: 1. No pulmonary embolism. Lungs are clear. US - DVT: Radiologist's Impression: [address] [place] [id number] ReportSigned Patient: Deisy Doty [facility]#: [id number]: 1950Acct:[id number]/Sex: 70 / FDate of Service: 01/04/21Loc: EDAccession Number: [id number] Procedure: [facility] venous low extrem lt Ordering Provider: Aura Chavez D.O. PROCEDURE: [facility] VENOUS LOW EXTREM LT INDICATIONS: redness/pain TECHNIQUE: Real-time imaging, as well as color and pulse Doppler interrogation, were performed of the lower extremity deep veins from the inguinal ligament to the popliteal fossa. COMPARISON: None. FINDINGS: The common femoral, femoral and popliteal veins are normally compr essible, and free of intraluminal thrombus. Color and pulse Doppler demonstrate normal phasic intraluminal flow. There is normal augmentation response to distal compression maneuver. There is occlusive thrombus demonstrated within the visualized greater saphenous vein. IMPRESSION: 1. Occlusive thrombus demonstrated within the superficial greater saphenous vein. 2. No deep venous thrombosis demonstrated in the left lower extremity. Dictated by: Adi Lopes M.D. on 01/04/2021 at 11:36 Approved by: Adi Lopes M.D. on 01/04/2021 at 12:01 ECG Data Interpretation: Normal sinus rhythm. Ventricular rate 76. P.r. interval 172. QRS 92. No ectopy noted. viewed by Dr Chavez MDM Narrative Medical decision making narrative: The patient is a 7-year-old female with history of thrombophlebitis who presents with a chief complaint of worsening thrombophlebitis and concern for DVT. She is noted to have erythema in her area of her of a phlebitis of her left anterior thigh. Ultrasound shows no evidence of deep vein thrombosis, though she is noted to have a occlusive thrombus in the superficial greater saphenous vein. The patient was able to state that she does not have any shortness of breath, so a CT was taken to rule out pulmonary embolism. This came back negative. Additionally the patient has negative troponin. She does note that these issues have been ongoing for several weeks. I did discuss the patient with primary care provider Dr. Reich we agreed to not start the patient on blood thinners at this time, encouraged follow-up with him. I discussed at length coming back to the ER for any acute concerns such as chest pain shortness of breath etcetera. The patient has no questions or concerns upon discharge states understanding of return precautions as well as follow-up care. <Aura Chavez, DO - Last Filed: 01/04/21 19:17> Lab Data Labs: Lab Results 01/04/21 01/04/21 01/04/21 Range/Units 12:57 12:57 12:57 WBC 8.6 (4.5-11.0) X10^3/uL RBC 3.52 L (4.0-5.2) X10^6/uL Hgb 8.9 L (12.0-16.0) g/dL Hct 27.9 L (36-46) % MCV 79.3 L (80-100) fL MCH 25.4 L (26-34) PG MCHC 32.0 (30-36) % RDW 20.5 H (11.6-14.8) % Plt Count 399 (150-400) X10^3/uL Neut % (Auto) 77.5 H (50-75) % Lymph % (Auto) 12.5 L (25-40) % Kings % (Auto) 8.9 (3-14) % Eos % (Auto) 0.7 L (2-4) % Baso % (Auto) 0.4 (0-2) % Neut # (Auto) 6700 (5016-9710) /uL Lymph # (Auto) 1100 (4387-5718) /uL Kings # (Auto) 800 (0-900) /uL Eos # (Auto) 100 (0-450) /uL Baso # (Auto) 0 (0-100) /uL RBC Morphology Not Reportable Poikilocytosis 1+ H Anisocytosis 2+ H PT 12.1 (10.1-12.7) SECONDS INR 1.0 (0.9-1.3) APTT 34 (26.4-36.2) SECONDS Sodium 133 L (137-145) mmol/L Potassium 3.9 (3.4-5.1) mmol/L Chloride 100 (98-107) mmol/L Carbon Dioxide 28 (22-32) mmol/L BUN 14 (7-17) mg/dL Creatinine 0.70 (0.52-1.04) mg/dL Estimated GFR > 60.0 (>60) mL/min BUN/Creatinine Ratio 20.0 (6-22) Glucose 100 (80-110) mg/dL Calcium 8.8 (8.4-10.2) mg/dL Total Creatine Kinase (30-135) U/L CK-MB (CK-2) CK-MB (CK-2) Rel Index Troponin I (0.01-0.034) ng/mL NT-Pro-B Natriuret Pep (<125) pg/mL Procalcitonin 0.03 (<0.5) ng/mL 01/04/21 Range/Units 12:57 WBC (4.5-11.0) X10^3/uL RBC (4.0-5.2) X10^6/uL Hgb (12.0-16.0) g/dL Hct (36-46) % MCV (80-100) fL MCH (26-34) PG MCHC (30-36) % RDW (11.6-14.8) % Plt Count (150-400) X10^3/uL Neut % (Auto) (50-75) % Lymph % (Auto) (25-40) % Kings % (Auto) (3-14) % Eos % (Auto) (2-4) % Baso % (Auto) (0-2) % Neut # (Auto) (6171-9210) /uL Lymph # (Auto) (1974-7700) /uL Kings # (Auto) (0-900) /uL Eos # (Auto) (0-450) /uL Baso # (Auto) (0-100) /uL RBC Morphology Poikilocytosis Anisocytosis PT (10.1-12.7) SECONDS INR (0.9-1.3) APTT (26.4-36.2) SECONDS Sodium (137-145) mmol/L Potassium (3.4-5.1) mmol/L Chloride (98-107) mmol/L Carbon Dioxide (22-32) mmol/L BUN (7-17) mg/dL Creatinine (0.52-1.04) mg/dL Estimated GFR (>60) mL/min BUN/Creatinine Ratio (6-22) Glucose (80-110) mg/dL Calcium (8.4-10.2) mg/dL Total Creatine Kinase 73 (30-135) U/L CK-MB (CK-2) TNP CK-MB (CK-2) Rel Index TNP Troponin I < 0.012 (0.01-0.034) ng/mL NT-Pro-B Natriuret Pep 144 H (<125) pg/mL Procalcitonin (<0.5) ng/mL Discharge Plan Departure Patient Disposition: Home Clinical Impression: Thrombosis of left saphenous vein, Thrombophlebitis Instructions: DI for Superficial Thrombophlebitis Activity Restrictions/Additional Instructions: Thank you for trusting us with your care today. Your evaluation shows no blood clots in your lungs. It does not show any evidence of deep vein thrombosis. A superficial thrombus. Please follow-up with Dr. Reich. I spoke with him regarding her findings today. We would like to avoid blood thinners given your history of GI bleed and anemia. Please follow-up with him in the next few days. As discussed, please come back to the emergency department for any acute concerns. Prescriptions: No Action cholecalciferol (vitamin D3) 25 mcg (1,000 unit) capsule 25 mcg PO DAILY Qty: 90 RF: 1 levothyroxine [Synthroid] 50 mcg tablet 50 mcg PO DAILY Qty: 90 RF: 3 losartan [Cozaar] 50 mg tablet 50 mg PO DAILY Qty: 90 RF: 3 Referrals: Greg Reich MD [Primary Care Provider] - <Aura Chavez DO - Last Filed: 01/04/21 19:17> Cosign ED Attending Johannyature Attestation: I was immediately available in the department for consultation. Documentation has been reviewed. I agree with assessment and plan.
== END 2021-01-04 15:55 | disposition home or self-care (01) ==
PROVIDERS: Emergency Medicine; Emergency Provider Nurse Practitioner Family; PCP Student in an Organized Health Care Education/Training Program
DX: I82.812 Embolism and thrombosis of superficial veins of left lower extremity (principal); R00.2 Palpitations; R06.02 Shortness of breath
CPT/HCPCS: 36415; 71275; 80048; 82550; 83880; 84145; 84484; 85025; 85610; 85730; 93005; 93971; 99284; Q9967

== ENCOUNTER → 2021-01-20 12:24 | Outpatient (CLI) | payer MEDICARE, SELFPAY ==
[2019-02-16 19:59] VITALS: BMI 27.4
[2021-01-20] MEDS: COVID-19 VACC #1, MRNA(MOD) 100 MCG/0.5 ML VIAL IM (12:30)
== END ==
PROVIDERS: PCP Student in an Organized Health Care Education/Training Program; Visit Provider Internal Medicine
DX: Z23 Encounter for immunization (principal)
CPT/HCPCS: 0011A; 91301

== ENCOUNTER → 2021-02-17 12:25 | Outpatient (CLI) | payer MEDICARE, SELFPAY ==
[2019-02-16 19:59] VITALS: BMI 27.4
[2021-02-17] MEDS: COVID-19 VACC #2, MRNA(MOD) 100 MCG/0.5 ML VIAL IM (12:34)
== END ==
PROVIDERS: PCP Student in an Organized Health Care Education/Training Program; Visit Provider Internal Medicine
DX: Z23 Encounter for immunization (principal)
CPT/HCPCS: 0012A; 91301

== ENCOUNTER → 2021-03-22 08:46 | Outpatient (CLI) | payer MEDICARE, SELFPAY ==
[2019-02-16 19:59] VITALS: BMI 27.4
[2021-03-22 09:40] LABS: Hematocrit 34.4 % (36-46); Mean Corpuscular HGB Conc 31.9 % (30-36); Mean Corpuscular Hemoglobin 25.5 PG (26-34); Mean Corpuscular Volume 79.8 fL (80-100); Platelet Count 315 X10^3/uL (150-400); Red Blood Cell Count 4.31 X10^6/uL (4.0-5.2); Red Cell Distribution Width 18.8 % (11.6-14.8); White Blood Cell Count 5.7 X10^3/uL (4.5-11.0)
[2021-03-22 09:41] LABS: Reticulocyte Count, Percent 0.8 % (1.06-2.63)
[2021-03-22 10:11] LABS: HEMOLYSIS < 15 (0-50); Iron 58 ug/dL (37-170)
[2021-03-22 10:21] LABS: Percent Iron Saturation 15 % (15-50); Total Iron Binding Capacity 378 ug/dL (265-497); Transferrin 320 mg/dL (206-381)
[2021-03-22 10:30] LABS: Vitamin D 25 Hydroxy (D3) 26.2 ng/mL (30.0-100.0)
[2021-03-22 10:46] LABS: Ferritin 18 ng/mL (11-264)
== END ==
PROVIDERS: PCP Student in an Organized Health Care Education/Training Program; Referring Provider Student in an Organized Health Care Education/Training Program; Visit Provider Student in an Organized Health Care Education/Training Program
DX: E55.9 Vitamin D deficiency, unspecified (principal); D50.9 Iron deficiency anemia, unspecified
CPT/HCPCS: 36415; 82306; 82728; 83540; 83550; 85027; 85045

== ENCOUNTER → 2021-07-13 08:50 | Outpatient (CLI) | payer MEDICARE, SELFPAY ==
[2019-02-16 19:59] VITALS: BMI 27.4
[2021-07-13 09:45] LABS: Hematocrit 37.6 % (36-46); Hemoglobin 12.3 g/dL (12.0-16.0); Mean Corpuscular HGB Conc 32.6 % (30-36); Mean Corpuscular Hemoglobin 28.3 PG (26-34); Mean Corpuscular Volume 86.6 fL (80-100); Platelet Count 295 X10^3/uL (150-400); Red Blood Cell Count 4.34 X10^6/uL (4.0-5.2); Red Cell Distribution Width 14.5 % (11.6-14.8); White Blood Cell Count 5.9 X10^3/uL (4.5-11.0)
[2021-07-13 10:22] LABS: HEMOLYSIS < 15 (0-50); Iron 80 ug/dL (37-170)
[2021-07-13 10:34] LABS: Percent Iron Saturation 22 % (15-50); Total Iron Binding Capacity 357 ug/dL (265-497); Transferrin 302 mg/dL (206-381)
[2021-07-13 10:37] LABS: Vitamin D 25 Hydroxy (D3) 23.9 ng/mL (30.0-100.0)
== END ==
PROVIDERS: PCP Student in an Organized Health Care Education/Training Program; Referring Provider Student in an Organized Health Care Education/Training Program; Visit Provider Student in an Organized Health Care Education/Training Program
DX: E55.9 Vitamin D deficiency, unspecified (principal); D50.9 Iron deficiency anemia, unspecified
CPT/HCPCS: 36415; 82306; 83540; 83550; 85027; 85045

== ENCOUNTER → 2022-04-05 15:31 | Outpatient (CLI) | payer MEDICARE, SELFPAY ==
[2019-02-16 19:59] VITALS: BMI 27.4
[2022-04-05 16:45] LABS: Hematocrit 32.7 % (36-46); Mean Corpuscular HGB Conc 33.5 % (30-36); Mean Corpuscular Hemoglobin 26.4 PG (26-34); Mean Corpuscular Volume 78.6 fL (80-100); Platelet Count 335 X10^3/uL (150-400); Red Blood Cell Count 4.16 X10^6/uL (4.0-5.2); Red Cell Distribution Width 17.3 % (11.6-14.8); White Blood Cell Count 6.7 X10^3/uL (4.5-11.0)
[2022-04-05 17:06] LABS: BUN Creatinine Ratio 29.9 (6-22); Blood Urea Nitrogen 26 mg/dL (7-17); Calcium 8.6 mg/dL (8.4-10.2); Carbon Dioxide 29 mmol/L (22-32); Chloride 104 mmol/L (98-107); Estimated Glomerular Filt Rate > 60 mL/min (>60); Glucose 94 mg/dL (80-110); HEMOLYSIS < 15 (0-50); Potassium 3.9 mmol/L (3.4-5.1); Sodium 138 mmol/L (137-145)
[2022-04-05 17:26] LABS: Vitamin D 25 Hydroxy (D3) 40.5 ng/mL (30.0-100.0)
== END ==
PROVIDERS: PCP Student in an Organized Health Care Education/Training Program; Referring Provider Student in an Organized Health Care Education/Training Program; Visit Provider Student in an Organized Health Care Education/Training Program
DX: E03.9 Hypothyroidism, unspecified (principal); E55.9 Vitamin D deficiency, unspecified; D50.9 Iron deficiency anemia, unspecified; I10 Essential (primary) hypertension
CPT/HCPCS: 36415; 80048; 82306; 84443; 85027

== ENCOUNTER → 2023-03-06 08:54 | Outpatient (CLI) | payer MEDICARE, SELFPAY ==
[2019-02-16 19:59] VITALS: BMI 27.4
[2023-03-06 12:10] LABS: BUN Creatinine Ratio 24.2 (6-22); Blood Urea Nitrogen 16 mg/dL (7-17); Carbon Dioxide 30 mmol/L (22-32); Chloride 101 mmol/L (98-107); Estimated Glomerular Filt Rate > 60 mL/min (>60); Glucose 89 mg/dL (80-110); HEMOLYSIS < 15 (0-50); Potassium 4.6 mmol/L (3.4-5.1); Sodium 137 mmol/L (137-145)
[2023-03-06 12:39] LABS: TSH w/ Reflex to FT4 0.59 uIU/mL (0.47-4.68)
[2023-03-07 16:02] LABS: Hep C Virus Ab w/Reflex Quant NEGATIVE s/c (NEGATIVE)
== END ==
PROVIDERS: PCP Student in an Organized Health Care Education/Training Program; Referring Provider Student in an Organized Health Care Education/Training Program; Visit Provider Student in an Organized Health Care Education/Training Program
DX: E03.9 Hypothyroidism, unspecified (principal); I10 Essential (primary) hypertension; Z11.59 Encounter for screening for other viral diseases
CPT/HCPCS: 36415; 80048; 84443; 86803

== ENCOUNTER → 2023-05-06 11:34 | Outpatient (CLI) | payer MEDICARE, SELFPAY ==
[2019-02-16 19:59] VITALS: BMI 27.4
[2023-05-06 12:52] LABS: Hematocrit 36.2 % (36-46); Hemoglobin 12.3 g/dL (12.0-16.0); Mean Corpuscular Hemoglobin 28.8 PG (26-34); Mean Corpuscular Volume 84.9 fL (80-100); Platelet Count 303 X10^3/uL (150-400); Red Blood Cell Count 4.27 X10^6/uL (4.0-5.2); Red Cell Distribution Width 14.1 % (11.6-14.8); White Blood Cell Count 7.3 X10^3/uL (4.5-11.0)
[2023-05-06 13:13] LABS: Appearance Urine UA CLEAR; Bilirubin Urine UA NEGATIVE (NEGATIVE); Color Urine UA YELLOW; Glucose Urine UA NEGATIVE (Negative); Ketones Urine UA NEGATIVE (NEGATIVE); Leukocyte Esterase Urine UA NEGATIVE (NEGATIVE); Nitrite Urine UA NEGATIVE (Negative); Occult Blood Urine UA NEGATIVE (Negative); Protein Urine UA NEGATIVE (Negative); Specific Gravity Urine UA <=1.005 (1.000-1.035); Urobilinogen Urine UA 0.2 E.U./dL (0.2)
[2023-05-06 13:15] LABS: Alanine Aminotransferase 27 IU/L (<35); Albumin 4.2 g/dL (3.5-5.0); Albumin Globulin Ratio 1.6 (1.0-2.8); Alkaline Phosphatase 77 U/L (38-126); Amylase 62 U/L (30-110); Aspartate Aminotransferase 31 IU/L (14-36); BUN Creatinine Ratio 20.5 (6-22); Bilirubin Total 0.5 mg/dL (0.2-1.3); Blood Urea Nitrogen 15 mg/dL (7-17); Carbon Dioxide 30 mmol/L (22-32); Chloride 101 mmol/L (98-107); Estimated Glomerular Filt Rate > 60 mL/min (>60); Globulin 2.6 g/dL (1.7-4.1); Glucose 92 mg/dL (80-110); HEMOLYSIS < 15 (0-50); Lipase 99 U/L (23-300); Potassium 3.8 mmol/L (3.4-5.1); Sodium 136 mmol/L (137-145); Total Protein 6.8 g/dL (6.3-8.2)
[2023-05-06 14:05] LABS: Bacteria Urine None Seen; Culture Indicated Urine Cult Not Indicated; RBC Urine None Seen (0-5/HPF); Squamous Epithelial Cell Urine None Seen (0-5/HPF); WBC Urine None Seen (0-5/HPF)
== END ==
PROVIDERS: PCP Internal Medicine; Referring Provider Internal Medicine; Visit Provider Internal Medicine
DX: K59.01 Slow transit constipation (principal); R10.11 Right upper quadrant pain
CPT/HCPCS: 36415; 80053; 81001; 82150; 83690; 85027

== ENCOUNTER 2023-08-16 11:15 | Emergency (ER) | payer MEDICARE, SELFPAY ==
[2019-02-16 19:59] VITALS: BMI 27.4
[2023-08-16] VITALS (9 sets, daily range): BP systolic 165–239; BP diastolic 84–108; PULSE 58–65; RESP 17–20; TEMP 36.8–36.9; O2SAT 95–100; BMI 24.2
--- NOTE | 2023-08-16 14:44 | ED.LOWEXIN ---
HPI - Extremity Injury (Lower) <Gael Martinez PA-C - Last Filed: 08/16/23 17:54> General Chief Complaint: Extremity Injury, Lower Stated Complaint: pain in groin LT side T-5 Time Seen by Provider: 08/16/23 14:11 Source: patient Mode of arrival: Ambulatory History of Present Illness HPI Narrative: This is a 73-year-old female presents emergency department due to abdominal pain for the last week or so. 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 She states that she is had right-sided abdominal pain as well as left lower quadrant abdominal pain with some nausea. She denies any chest pain, shortness of breath, or any other concerning signs or symptoms. Also does report some muscular lower back pain as well as anterior bilateral thigh pain. Denies any diarrhea or constipation. Related Data Previous Rx's Medication Instructions Recorded Synthroid 50 mcg tablet 50 mcg PO DAILY #90 tabs 03/06/23 (levothyroxine) losartan 50 mg tablet 50 mg PO DAILY #90 tabs 04/02/23 cholecalciferol (vitamin D3) 25 25 mcg PO DAILY #30 caps 07/09/23 mcg (1,000 unit) tablet (Vitamin D3) Allergies Allergy/AdvReac Type Severity Reaction Status Date / Time ampicillin [AMPICILLIN] Allergy Intermediate HIVES Verified 08/16/23 12:13 Penicillins [PENICILLINS] Allergy Intermediate HIVES Verified 08/16/23 12:13 Tetracyclines [TETRACYCLINES] Allergy Intermediate HIVES Verified 08/16/23 12:13 Review of Systems <Gael Martinez PA-C - Last Filed: 08/16/23 17:54> Review of Systems Narrative: GENERAL: Denies chills, fatigue, malaise, fever, sweats. HEENT: Denies sinus pain, ear pain, sore throat, difficulty swallowing, dizziness. RESPIRATORY: Denies dyspnea, cough, wheezing, hemoptysis, sputum. CARDIOVASCULAR: Denies chest pain, palpitations, orthopnea, edema, GASTROINTESTINAL: Reports abdominal pain and nausea Denies , vomiting, diarrhea, constipation, melena. : Denies dysuria, frequency, incontinence, hematuria, urinary retention. MUSCULOSKELETAL: Reports back pain denies weakness, joint pain, or bony pain SKIN: Denies rash, skin lesions, or other NEUROLOGIC: Denies weakness, headache, numbness, change in speech, confusion, seizures, incoordination. PSYCHIATRIC: No concerning psychosocial issues. 12 point review of systems is negative except for those stated above Patient History <Gael Martinez PA-C - Last Filed: 08/16/23 17:54> Medical History (Updated 08/16/23 @ 17:53 by Gael Martinez PA-C) Slow transit constipation Nasal bone fx-closed (03/25/03) Vitamin D deficiency Hypothyroid GI bleed Surgical History H/O bilateral oophorectomy Family History Mother Lymphoma Father Colorectal cancer Social History household members: none Smoking Status: Former smoker Smoking Status: Former smoker alcohol intake frequency: 0-2 drinks per day Substance Use Type: does not use Exam <Gael Martinez PA-C - Last Filed: 08/16/23 17:54> Narrative Exam Narrative: GENERAL: Well-developed patient, in mild distress. HEAD: Atraumatic. Normocephalic. EYES: Pupils equal round and reactive. Extraocular motions intact. No scleral icterus. No injection or drainage. ENT: Nose without bleeding, purulent drainage. Throat without erythema, tonsillar hypertrophy or exudate. Airway patent. NECK: Trachea midline. Non tender CARDIOVASCULAR: Regular rate and rhythm without murmurs, gallops, or rubs. RESPIRATORY: Clear to auscultation. Breath sounds equal bilaterally. No wheezes, rales, or rhonchi. GASTROINTESTINAL: Right-sided abdominal tenderness to palpation as well as left lower quadrant tenderness to palpation EXTREMITIES: No edema or joint tenderness. BACK: Nontender without deformity or crepitance. No flank tenderness. NEURO: AOx3. SKIN: No rash or erythema of visible areas Initial Vital Signs Initial Vital Signs: Vital Signs Temperature 98.5 F 08/16/23 12:11 Pulse Rate 65 08/16/23 12:11 Respiratory Rate 17 08/16/23 12:11 Blood Pressure 203/95 H 08/16/23 12:11 Pulse Oximetry 97 08/16/23 12:11 Oxygen Delivery Method Room Air 08/16/23 12:11 <Jorge A Nelson DO - Last Filed: 08/17/23 08:59> Initial Vital Signs Initial Vital Signs: Vital Signs Temperature 98.5 F 08/16/23 12:11 Pulse Rate 65 08/16/23 12:11 Respiratory Rate 17 08/16/23 12:11 Blood Pressure 203/95 H 08/16/23 12:11 Pulse Oximetry 97 08/16/23 12:11 Oxygen Delivery Method Room Air 08/16/23 12:11 Course <Gael Martinez PA-C - Last Filed: 08/16/23 17:54> Orders Ordered: Discontinued Medications Morphine Sulfate (Morphine 4 Mg/Ml Inj) 4 mg IV NOW ONE Stop: 08/16/23 15:09 Last Admin: 08/16/23 15:15 Dose: 4 mg Documented By: RB Ondansetron HCl (Ondansetron 4 Mg/2 Ml Inj) 4 mg IV NOW ONE Stop: 08/16/23 15:09 Last Admin: 08/16/23 15:15 Dose: 4 mg Documented By: NADEEM Consultations Consultation #1: [id number]: Spoke with Dr. Ricardo, geoint analyst concerning the patient who recommended to follow up outpatient for outpatient workup. Vital Signs Vital signs: Vital Signs - 8 hr 08/16/23 12:11 08/16/23 15:05 08/16/23 15:08 Temperature 98.5 F Pulse Rate 65 62 61 Respiratory Rate 17 18 Blood Pressure 203/95 H 239/107 H Pulse Oximetry 97 100 100 Oxygen Delivery Method Room Air 08/16/23 15:10 08/16/23 15:10 08/16/23 15:16 Temperature Pulse Rate 58 L Respiratory Rate Blood Pressure 212/97 H 234/108 H Pulse Oximetry 100 Oxygen Delivery Method 08/16/23 15:16 08/16/23 15:43 08/16/23 16:21 Temperature Pulse Rate 63 Respiratory Rate Blood Pressure 220/105 H 201/92 H Pulse Oximetry 99 Oxygen Delivery Method 08/16/23 17:09 Temperature Pulse Rate Respiratory Rate Blood Pressure 184/84 H Pulse Oximetry Oxygen Delivery Method <Jorge A Nelson DO - Last Filed: 08/17/23 08:59> Orders Ordered: Discontinued Medications Morphine Sulfate (Morphine 4 Mg/Ml Inj) 4 mg IV NOW ONE Stop: 08/16/23 15:09 Last Admin: 08/16/23 15:15 Dose: 4 mg Documented By: RB Ondansetron HCl (Ondansetron 4 Mg/2 Ml Inj) 4 mg IV NOW ONE Stop: 08/16/23 15:09 Last Admin: 08/16/23 15:15 Dose: 4 mg Documented By: RB Vital Signs Vital signs: Vital Signs - 8 hr 08/16/23 12:11 08/16/23 15:05 08/16/23 15:08 Temperature 98.5 F Pulse Rate 65 62 61 Respiratory Rate 17 18 Blood Pressure 203/95 H 239/107 H Pulse Oximetry 97 100 100 Oxygen Delivery Method Room Air 08/16/23 15:10 08/16/23 15:10 08/16/23 15:16 Temperature Pulse Rate 58 L Respiratory Rate Blood Pressure 212/97 H 234/108 H Pulse Oximetry 100 Oxygen Delivery Method 08/16/23 15:16 08/16/23 15:43 08/16/23 16:21 Temperature Pulse Rate 63 Respiratory Rate Blood Pressure 220/105 H 201/92 H Pulse Oximetry 99 Oxygen Delivery Method 08/16/23 17:09 Temperature Pulse Rate Respiratory Rate Blood Pressure 184/84 H Pulse Oximetry Oxygen Delivery Method MDM - Extremity Injury (Lower) <Gael Martinez PA-C - Last Filed: 08/16/23 17:54> Lab Data 08/16/23 14:55 08/16/23 14:55 Labs: Lab Results 08/16/23 Range/Units 14:55 WBC 7.6 (4.5-11.0) X10^3/uL RBC 4.70 (4.0-5.2) X10^6/uL Hgb 13.6 (12.0-16.0) g/dL Hct 40.1 (36-46) % MCV 85.3 (80-100) fL MCH 28.8 (26-34) PG MCHC 33.8 (30-36) % RDW 13.9 (11.6-14.8) % Plt Count 321 (150-400) X10^3/uL Neut % (Auto) 68.4 (50-75) % Lymph % (Auto) 23.7 L (25-40) % Starke % (Auto) 6.6 (3-14) % Eos % (Auto) 1.0 L (2-4) % Baso % (Auto) 0.3 (0-2) % Neut # (Auto) 5200 (7180-3990) /uL Lymph # (Auto) 1800 (6319-3065) /uL Starke # (Auto) 500 (0-900) /uL Eos # (Auto) 100 (0-450) /uL Baso # (Auto) 0 (0-100) /uL Sodium 136 L (137-145) mmol/L Potassium 3.8 (3.4-5.1) mmol/L Chloride 98 (98-107) mmol/L Carbon Dioxide 29 (22-32) mmol/L BUN 13 (7-17) mg/dL Creatinine 0.61 (0.52-1.04) mg/dL Estimated GFR > 60 (>60) mL/min BUN/Creatinine Ratio 21.3 (6-22) Glucose 103 (80-110) mg/dL Calcium 9.8 (8.4-10.2) mg/dL Total Bilirubin 0.5 (0.2-1.3) mg/dL AST 33 (14-36) IU/L ALT 25 (<35) IU/L Alkaline Phosphatase 82 (38-126) U/L Total Protein 8.0 (6.3-8.2) g/dL Albumin 4.7 (3.5-5.0) g/dL Globulin 3.3 (1.7-4.1) g/dL Albumin/Globulin Ratio 1.4 (1.0-2.8) Imaging Data CT scan - abdomen/pelvis: Radiologist's Impression: [address] [address] [address] Scan Report Signed Patient: Deisy Doty MR#: [id number] : 1950 Acct:[id number] Age/Sex: 73 / F Date of Service: 08/16/23 Loc: ED Accession Number: [id number] Procedure: CT abdomen pelvis w con Ordering Provider: Gael Martinez P.A-C PROCEDURE: CT ABDOMEN PELVIS W CON INDICATIONS: LLQ and R sided abdominal TTP TECHNIQUE: After the administration of intravenous contrast, axial sections acquired from the lung bases to the pubic symphysis. Coronal and sagittal reformats were performed. For radiation dose reduction, the following was used: automated exposure control, adjustment of mA and/or kV according to patient size. COMPARISON: [facility], CT, ABD/PELVIS W/CON (PNL), 12/27/2011, 18:17. FINDINGS: Image quality: Excellent. Lung bases: Unremarkable. Heart: No significant findings. ABDOMEN: Liver: Calcifications in the posterior right hepatic lobe. Gallbladder: Unremarkable. Biliary ducts: Unremarkable. Pancreas: Unremarkable. Spleen: Unremarkable. Adrenal Glands: Unremarkable. Kidneys and Ureters: Left renal simple cyst. The kidneys enhance symmetrically without hydronephrosis.. Stomach and Bowel: Moderate hiatal hernia. The small bowel loops and colon are unremarkable. Moderate burden of stool throughout the colon. Diverticulosis without evidence of diverticulitis. Peritoneum: No abnormal intraperitoneal fluid. No free air. Ventral Wall: No hernias. Abdominal Nodes: No retroperitoneal or mesenteric adenopathy by size criteria. Vessels: Aorta and inferior vena cava are normal in size. Calcified and noncalcified atherosclerotic plaques. PELVIS: Pelvic Organs: Coarsely calcified lesions within the uterus, likely degenerated fibroids. Multiloculated cystic structure with areas of thick piper and septations within the pelvis measuring 8.8 x 10.6 cm. . Bladder: The urinary bladder is distended. There is a hypoattenuating structure sitting just superior to the dome of the bladder measuring approximately 3.6 x 3.0 cm with higher than water attenuation.. Pelvic Nodes: No enlarged lymph nodes. Miscellaneous: No hernias are seen. Bones: Decreased osseous mineralization. Degenerative changes the spine. Grade 1 anterolisthesis of L4 on L5. Severe disc height loss at L5-S1. IMPRESSION: 1. Large cystic lesion within the pelvis measuring 10.6 cm with thick piper and septations. Findings are concerning for neoplasm. Provided history of bilateral oophorectomy, recommend correlation with reason for oophorectomy as this may represent recurrent disease and is somewhat similar in appearance to the lesion seen on CT scan from 12/27/2011. 2. There is a 3.6 cm low densities well-circumscribed structure sitting just superior to the dome of the bladder measuring higher than water attenuation, of unclear etiology, recurring disease is not excluded. Dictated by: Gabo Claire M.D. on 08/16/2023 at 16:14 Approved by: Gabo Claire M.D. on 08/16/2023 at 16:23 [facility] Narrative Medical decision making narrative: MDM * differential diagnosis includes but not limited to , diverticulitis, cholecystitis, small-bowel obstruction, ovarian torsion * Prior records reviewed: Patient was last seen 2 years ago due to left leg phlebitis. History of GI bleed and was admitted as well. History of hypothyroidism. Was found to have a occlusive thrombus in the superficial greater saphenous vein. CT was taken and was negative. Was recommended follow up with primary care provider. * My lab interpretation: CMP unremarkable, CBC unremarkable, no leukocytosis, no signs of anemia * My imgaing interpretation: CT findings as above. 10.6 cm cystic lesion affecting uterus. * Clinical Decision Rules/Scores evaluated: None * Independent discussions with: None ED Course: This is a 73-year-old female presents to the emergency department due to abdominal pain for the last week. CT abdomen and pelvis was ordered which showed a 10.6 cm cystic lesion affecting the uterus suggestive of neoplasm. This was discussed with Dr. Ricardo, geoint analyst, who recommended outpatient follow up. Patient's pain was controlled with morphine. Recommended ibuprofen and Tylenol for pain outpatient which patient was comfortable with. Patient was also noted to have elevated blood pressure which improved with pain control. Recommended patient take her routine nighttime meds for her blood pressure when she returns home. Shared Decision Making: Discussed plan with patient who is comfortable with the plan. Social Considerations: None Disposition: Discharged to home <Jorge A Nelson, DO - Last Filed: 08/17/23 08:59> Lab Data Labs: Lab Results 08/16/23 Range/Units 14:55 WBC 7.6 (4.5-11.0) X10^3/uL RBC 4.70 (4.0-5.2) X10^6/uL Hgb 13.6 (12.0-16.0) g/dL Hct 40.1 (36-46) % MCV 85.3 (80-100) fL MCH 28.8 (26-34) PG MCHC 33.8 (30-36) % RDW 13.9 (11.6-14.8) % Plt Count 321 (150-400) X10^3/uL Neut % (Auto) 68.4 (50-75) % Lymph % (Auto) 23.7 L (25-40) % Starke % (Auto) 6.6 (3-14) % Eos % (Auto) 1.0 L (2-4) % Baso % (Auto) 0.3 (0-2) % Neut # (Auto) 5200 (1654-3595) /uL Lymph # (Auto) 1800 (8412-5875) /uL Starke # (Auto) 500 (0-900) /uL Eos # (Auto) 100 (0-450) /uL Baso # (Auto) 0 (0-100) /uL Sodium 136 L (137-145) mmol/L Potassium 3.8 (3.4-5.1) mmol/L Chloride 98 (98-107) mmol/L Carbon Dioxide 29 (22-32) mmol/L BUN 13 (7-17) mg/dL Creatinine 0.61 (0.52-1.04) mg/dL Estimated GFR > 60 (>60) mL/min BUN/Creatinine Ratio 21.3 (6-22) Glucose 103 (80-110) mg/dL Calcium 9.8 (8.4-10.2) mg/dL Total Bilirubin 0.5 (0.2-1.3) mg/dL AST 33 (14-36) IU/L ALT 25 (<35) IU/L Alkaline Phosphatase 82 (38-126) U/L Total Protein 8.0 (6.3-8.2) g/dL Albumin 4.7 (3.5-5.0) g/dL Globulin 3.3 (1.7-4.1) g/dL Albumin/Globulin Ratio 1.4 (1.0-2.8) Discharge Plan Departure Patient Disposition: Home Clinical Impression: Mass of uterus Activity Restrictions/Additional Instructions: Thank you for coming to the [facility] Emergency Department today. As we discussed the CT scan showed a cystic lesion to your uterus. This will need outpatient follow up. 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 May also try calling [facility] geoint analyst to schedule an appointment. You may call them at [phone] I hope you feel better soon. Please follow up with your primary care provider within a week if your symptoms continue. If you do not have a primary care provider please contact the [facility] Resource line at [phone]. They will ask some questions about your medical history and help you get set up with a provider in the community. Prescriptions: No Action losartan 50 mg tablet 50 mg PO DAILY Qty: 90 1RF Hold Instructions: Trying to see if Cozaar covered for patient under new plan cholecalciferol (vitamin D3) [Vitamin D3] 25 mcg (1,000 unit) tablet 25 mcg PO DAILY Qty: 30 0RF Rx Instructions: NO ADDITIONAL REFILLS UNTIL VITAMIN D BLOOD LEVELS ARE CHECKED. 9.5.23 levothyroxine [Synthroid] 50 mcg tablet 50 mcg PO DAILY Qty: 90 3RF Referrals: José Luis Childers MD [Primary Care Provider] - Stand Alone Forms: Patient Portal/API ED Sign-out <Jorge A Nelson DO - Last Filed: 08/17/23 08:59> Cosign ED Attending Johannyature Attestation: I was immediately available in the department for consultation. Documentation has been reviewed. I agree with assessment and plan.
--- NOTE | 2023-08-16 14:54 | DI.CT.S_ITS ---
PROCEDURE: CT ABDOMEN PELVIS W CON INDICATIONS: LLQ and R sided abdominal TTP TECHNIQUE: After the administration of intravenous contrast, axial sections acquired from the lung bases to the pubic symphysis. Coronal and sagittal reformats were performed. For radiation dose reduction, the following was used: automated exposure control, adjustment of mA and/or kV according to patient size. COMPARISON: [facility], CT, ABD/PELVIS W/CON (PNL), 12/27/2011, 18:17. FINDINGS: Image quality: Excellent. Lung bases: Unremarkable. Heart: No significant findings. ABDOMEN: Liver: Calcifications in the posterior right hepatic lobe. Gallbladder: Unremarkable. Biliary ducts: Unremarkable. Pancreas: Unremarkable. Spleen: Unremarkable. Adrenal Glands: Unremarkable. Kidneys and Ureters: Left renal simple cyst. The kidneys enhance symmetrically without hydronephrosis.. Stomach and Bowel: Moderate hiatal hernia. The small bowel loops and colon are unremarkable. Moderate burden of stool throughout the colon. Diverticulosis without evidence of diverticulitis. Peritoneum: No abnormal intraperitoneal fluid. No free air. Ventral Wall: No hernias. Abdominal Nodes: No retroperitoneal or mesenteric adenopathy by size criteria. Vessels: Aorta and inferior vena cava are normal in size. Calcified and noncalcified atherosclerotic plaques. PELVIS: Pelvic Organs: Coarsely calcified lesions within the uterus, likely degenerated fibroids. Multiloculated cystic structure with areas of thick piper and septations within the pelvis measuring 8.8 x 10.6 cm. . Bladder: The urinary bladder is distended. There is a hypoattenuating structure sitting just superior to the dome of the bladder measuring approximately 3.6 x 3.0 cm with higher than water attenuation.. Pelvic Nodes: No enlarged lymph nodes. Miscellaneous: No hernias are seen. Bones: Decreased osseous mineralization. Degenerative changes the spine. Grade 1 anterolisthesis of L4 on L5. Severe disc height loss at L5-S1. IMPRESSION: 1. Large cystic lesion within the pelvis measuring 10.6 cm with thick piper and septations. Findings are concerning for neoplasm. Provided history of bilateral oophorectomy, recommend correlation with reason for oophorectomy as this may represent recurrent disease and is somewhat similar in appearance to the lesion seen on CT scan from 12/27/2011. 2. There is a 3.6 cm low densities well-circumscribed structure sitting just superior to the dome of the bladder measuring higher than water attenuation, of unclear etiology, recurring disease is not excluded. Dictated by: Gabo Claire M.D. on 08/16/2023 at 16:14 Approved by: Gabo Claire M.D. on 08/16/2023 at 16:23
--- NOTE | 2023-08-16 15:09 | PC.NURSE ---
This RN retook patient vitals in fast track room and immediately informed provider of patient increased blood pressure. I confirmed patient takes 50mg Lorsatin nightly and was taken last night. I also informed provider of patient 10/10 pain. New orders being placed by provider.
[2023-08-16 15:14] LABS: Add Manual Diff / Slide Review NO; Basophils Absolute Auto 0 /uL (0-100); Basophils Percent Auto 0.3 % (0-2); Eosinophils Absolute Auto 100 /uL (0-450); Hematocrit 40.1 % (36-46); Hemoglobin 13.6 g/dL (12.0-16.0); Lymphocytes Absolute Auto 1800 /uL (1100-4500); Lymphocytes Percent Auto 23.7 % (25-40); Mean Corpuscular HGB Conc 33.8 % (30-36); Mean Corpuscular Hemoglobin 28.8 PG (26-34); Mean Corpuscular Volume 85.3 fL (80-100); Monocytes Absolute Auto 500 /uL (0-900); Monocytes Percent Auto 6.6 % (3-14); Neutrophils Absolute Auto 5200 /uL (1500-7000); Neutrophils Percent Auto 68.4 % (50-75); Platelet Count 321 X10^3/uL (150-400); Red Cell Distribution Width 13.9 % (11.6-14.8); White Blood Cell Count 7.6 X10^3/uL (4.5-11.0)
[2023-08-16] MEDS: ONDANSETRON 4 MG/2 ML INJ IV (15:15)
[2023-08-16] MEDS: MORPHINE 4 MG/ML INJ IV (15:15)
[2023-08-16 15:25] LABS: Alanine Aminotransferase 25 IU/L (<35); Albumin 4.7 g/dL (3.5-5.0); Albumin Globulin Ratio 1.4 (1.0-2.8); Alkaline Phosphatase 82 U/L (38-126); Aspartate Aminotransferase 33 IU/L (14-36); BUN Creatinine Ratio 21.3 (6-22); Bilirubin Total 0.5 mg/dL (0.2-1.3); Blood Urea Nitrogen 13 mg/dL (7-17); Calcium 9.8 mg/dL (8.4-10.2); Carbon Dioxide 29 mmol/L (22-32); Chloride 98 mmol/L (98-107); Estimated Glomerular Filt Rate > 60 mL/min (>60); Globulin 3.3 g/dL (1.7-4.1); Glucose 103 mg/dL (80-110); HEMOLYSIS < 15 (0-50); Potassium 3.8 mmol/L (3.4-5.1); Sodium 136 mmol/L (137-145)
--- NOTE | 2023-08-16 15:43 | CM.MNRNOTE ---
This RN rechecked patient pain and blood pressure after 30 minutes from pain medication administration. Pain was taken down to a 1/10 per patient. Blood pressure remains elevated. This RN immediately informed provider. No new orders given at this time.
== END 2023-08-16 18:12 | disposition home or self-care (01) ==
PROVIDERS: Emergency Provider Physician Assistant Medical; PCP Internal Medicine
DX: N85.8 Other specified noninflammatory disorders of uterus (principal)
CPT/HCPCS: 36415; 74177; 80053; 85025; 96374; 96375; 99284; J2270; J2405; Q9967

== ENCOUNTER → 2023-08-29 14:09 | Outpatient (CLI) | payer MEDICARE, SELFPAY ==
[2019-02-16 19:59] VITALS: BMI 27.4
[2023-08-29 16:10] LABS: Cancer Antigen 125 87.6 U/mL (0-35)
== END ==
PROVIDERS: PCP Internal Medicine; Referring Provider Physician Assistant; Visit Provider Physician Assistant
DX: N32.89 Other specified disorders of bladder (principal); N85.8 Other specified noninflammatory disorders of uterus
CPT/HCPCS: 36415; 86304

== ENCOUNTER → 2023-09-02 14:04 | Outpatient (CLI) | payer MEDICARE, SELFPAY ==
[2019-02-16 19:59] VITALS: BMI 27.4
--- NOTE | 2023-09-02 14:05 | DI.US.S_ITS ---
PROCEDURE: US PELVIC COMPLETE INDICATIONS: mass in uterus and above bladder TECHNIQUE: Real-time scanning was performed of the pelvic organs, with image documentation. Additional endovaginal scanning was necessary due to incomplete visualization of the adnexal and endometrial structures by transabdominal scanning. COMPARISON: [facility], CT, ABD/PELVIS W/CON (PNL), 12/27/2011, 18:17. [facility], CT, CT ABDOMEN PELVIS W CON, 08/16/2023, 15:32. FINDINGS: Uterus: Uterus is anteverted and normal in size at 6.8 x 5.4 x 6.3 cm. The myometrium is heterogeneous. The endometrium is not visualized. There is a left posterior submucosal fibroid which measures 2.3 x 1.1 x 2.3 cm and a left posterior submucosal fibroid which measures 1.9 x 0.6 x 1.8 cm. There is a large multiloculated lesion with multiple internal septations visualized at midline within the pelvis posterior to the uterus. The cystic lesion visualized superior to the bladder on the comparison CT dated August 16, 2023 is not visualized on the current scan. Ovaries: The ovaries are surgically absent. Other: No pathologic free abdominal or pelvic fluid. IMPRESSION: 1. Complex cystic mass visualized posterior to the pelvis as above. Given large size, the total size is better characterized by the CT dated August 16, 2023. It is unclear whether this originates from the uterus, adnexal tissue, or bowel. If further characterization is warranted, gynecologic protocol MRI is recommended. Of note, on the abdominal pelvic CT dated December 27, 2011, a similar appearing loculated mass was present within the mid abdomen just superior to the bladder. We strive to produce accurate, complete, and clear reports of imaging services. To assist us in improving patient care, this report was composed using standard report templates and voice recognition software. Therefore, it may contain abnormal punctuation, insertions and/or omissions. Occasional wrong-word or sound-alike substitutions may occur. Though we review the report and make efforts to correct it, we do recommend that the report be read carefully in proper context to recognize any text inaccuracies. Dictated by: Lesley Mitchell M.D. on 09/02/2023 at 16:16 Approved by: Lesley Mitchell M.D. on 09/02/2023 at 16:23
== END ==
PROVIDERS: PCP Internal Medicine; Referring Provider Physician Assistant; Visit Provider Physician Assistant
DX: D25.0 Submucous leiomyoma of uterus (principal); R19.09 Other intra-abdominal and pelvic swelling, mass and lump; N32.89 Other specified disorders of bladder; N85.8 Other specified noninflammatory disorders of uterus
CPT/HCPCS: 76830; 76856

== ENCOUNTER → 2023-09-03 12:41 | Outpatient (CLI) | payer MEDICARE, SELFPAY ==
[2019-02-16 19:59] VITALS: BMI 27.4
[2023-09-04 15:52] LABS: Cancer (Carbohydrate) Ag 19-9 5 U/mL (0-35)
== END ==
PROVIDERS: Referring Provider Physician Assistant; Visit Provider Physician Assistant
DX: N32.89 Other specified disorders of bladder (principal)
CPT/HCPCS: 36415; 82378; 86301

== ENCOUNTER 2024-04-09 17:33 | Emergency (ER) | payer MEDICARE, SELFPAY ==
[2019-02-16 19:59] VITALS: BMI 27.4
[2024-04-09 17:42] VITALS: BP 216/101; PULSE 74; RESP 16; TEMP 37.2; O2SAT 99; BMI 24.8
--- NOTE | 2024-04-09 17:47 | DI.RAD.S_ITS ---
PROCEDURE: XR CHEST 1V INDICATIONS: chest pain TECHNIQUE: One view of the chest was acquired. COMPARISON: [facility], , XR CHEST 2V, 02/16/2019, 16:22. [facility], , CHEST 2 VIEW, 12/13/2017, 17:56. FINDINGS: Surgical changes and devices: None. Lungs and pleura: Lungs are clear. No pleural effusions or pneumothorax. Mediastinum: Mediastinal contours appear normal. Heart size is normal. Moderate hiatal hernia. Bones and chest wall: No suspicious bony lesions. Overlying soft tissues appear unremarkable. IMPRESSION: No acute cardiopulmonary abnormality is seen. Moderate hiatal hernia. Dictated by: Carl Crystal M.D. on 04/09/2024 at 18:18 Approved by: Carl Crystal M.D. on 04/09/2024 at 18:21
[2024-04-09 18:37] LABS: Add Manual Diff / Slide Review NO; Basophils Absolute Auto 0 /uL (0-100); Basophils Percent Auto 0.5 % (0-2); Eosinophils Absolute Auto 100 /uL (0-450); Eosinophils Percent Auto 1.3 % (2-4); Hematocrit 25.4 % (36-46); Hemoglobin 8.4 g/dL (12.0-16.0); Lymphocytes Absolute Auto 1600 /uL (1100-4500); Lymphocytes Percent Auto 23.9 % (25-40); Mean Corpuscular Hemoglobin 26.4 PG (26-34); Mean Corpuscular Volume 79.9 fL (80-100); Monocytes Absolute Auto 500 /uL (0-900); Monocytes Percent Auto 7.7 % (3-14); Neutrophils Absolute Auto 4400 /uL (1500-7000); Neutrophils Percent Auto 66.6 % (50-75); Platelet Count 371 X10^3/uL (150-400); Red Blood Cell Count 3.18 X10^6/uL (4.0-5.2); Red Cell Distribution Width 14.1 % (11.6-14.8); White Blood Cell Count 6.6 X10^3/uL (4.5-11.0)
[2024-04-09 18:46] LABS: Prothrombin Time 11.5 SECONDS (9.4-12.5)
[2024-04-09 18:48] LABS: PTT Partial Thromboplastin Tim 36 SECONDS (25.1-36.5)
[2024-04-09 18:49] LABS: Alanine Aminotransferase 20 IU/L (<35); Albumin 4.1 g/dL (3.5-5.0); Albumin Globulin Ratio 1.7 (1.0-2.8); Alkaline Phosphatase 75 U/L (38-126); Aspartate Aminotransferase 36 IU/L (14-36); BUN Creatinine Ratio 23.6 (6-22); Bilirubin Total 0.3 mg/dL (0.2-1.3); Blood Urea Nitrogen 17 mg/dL (7-17); Calcium 8.3 mg/dL (8.4-10.2); Carbon Dioxide 26 mmol/L (22-32); Chloride 105 mmol/L (98-107); Creatine Kinase 788 U/L (30-135); Estimated Glomerular Filt Rate > 60 mL/min (>60); Globulin 2.4 g/dL (1.7-4.1); Glucose 94 mg/dL (80-110); HEMOLYSIS < 15 (0-50); Lipase 79 U/L (23-300); Magnesium 2.1 mg/dL (1.6-2.3); Potassium 3.9 mmol/L (3.4-5.1); Sodium 135 mmol/L (137-145); Total Protein 6.5 g/dL (6.3-8.2)
[2024-04-09 18:58] LABS: NT-proBNP (BNP-Adult 18+) 91 pg/mL (<125)
[2024-04-09 19:01] LABS: Troponin I < 0.012 ng/mL (0.01-0.034)
--- NOTE | 2024-04-09 19:36 | ED.GENADULT ---
HPI - General Adult General Chief complaint: Shortness of Breath/Dyspnea Stated complaint: sob Time Seen by Provider: 04/09/24 19:36 Source: patient Mode of arrival: Ambulatory History of Present Illness HPI narrative: Patient left prior to physician evaluation Related Data Previous Rx's Medication Instructions Recorded Synthroid 50 mcg tablet 50 mcg PO DAILY #90 tabs 03/06/23 (levothyroxine) cholecalciferol (vitamin D3) 25 25 mcg PO DAILY #30 caps 07/09/23 mcg (1,000 unit) tablet (Vitamin D3) losartan 50 mg tablet 50 mg PO DAILY #90 tabs 11/06/23 Allergies Allergy/AdvReac Type Severity Reaction Status Date / Time ampicillin [AMPICILLIN] Allergy Intermediate HIVES Verified 12/27/23 08:57 Penicillins [PENICILLINS] Allergy Intermediate HIVES Verified 12/27/23 08:57 Tetracyclines [TETRACYCLINES] Allergy Intermediate HIVES Verified 12/27/23 08:57 Patient History Medical History (Updated 04/09/24 @ 19:49 by Sharlene Calhoun RN) Slow transit constipation Nasal bone fx-closed (03/25/03) Vitamin D deficiency Hypothyroid GI bleed Surgical History H/O bilateral oophorectomy Family History Mother Lymphoma Father Colorectal cancer Social History household members: none Smoking Status: Former smoker Smoking Status: Former smoker alcohol intake frequency: 0-2 drinks per day Substance Use Type: does not use Exam Initial Vital Signs Initial Vital Signs: Vital Signs Temperature 99 F 04/09/24 17:42 Pulse Rate 74 04/09/24 17:42 Respiratory Rate 16 04/09/24 17:42 Blood Pressure 216/101 H 04/09/24 17:42 Pulse Oximetry 99 04/09/24 17:42 Oxygen Delivery Method Room Air 04/09/24 17:42 Course Orders Ordered: Discontinued Medications Aspirin (Aspirin 81 Mg Chew Tab) 324 mg PO NOW ONE Stop: 04/09/24 17:48 Vital Signs Vital signs: Vital Signs - 8 hr 04/09/24 17:42 Temperature 99 F Pulse Rate 74 Respiratory Rate 16 Blood Pressure 216/101 H Pulse Oximetry 99 Oxygen Delivery Method Room Air Medical Decision Making Lab Data 04/09/24 18:17 04/09/24 18:17 Labs: Lab Results 04/09/24 Range/Units 18:17 WBC 6.6 (4.5-11.0) X10^3/uL RBC 3.18 L (4.0-5.2) X10^6/uL Hgb 8.4 L (12.0-16.0) g/dL Hct 25.4 L (36-46) % MCV 79.9 L (80-100) fL MCH 26.4 (26-34) PG MCHC 33.0 (30-36) % RDW 14.1 (11.6-14.8) % Plt Count 371 (150-400) X10^3/uL Neut % (Auto) 66.6 (50-75) % Lymph % (Auto) 23.9 L (25-40) % [place] % (Auto) 7.7 (3-14) % Eos % (Auto) 1.3 L (2-4) % Baso % (Auto) 0.5 (0-2) % Neut # (Auto) 4400 (6538-8979) /uL Lymph # (Auto) 1600 (6457-9657) /uL [place] # (Auto) 500 (0-900) /uL Eos # (Auto) 100 (0-450) /uL Baso # (Auto) 0 (0-100) /uL PT 11.5 (9.4-12.5) SECONDS INR 1.0 (0.9-1.3) APTT 36 (25.1-36.5) SECONDS Sodium 135 L (137-145) mmol/L Potassium 3.9 (3.4-5.1) mmol/L Chloride 105 (98-107) mmol/L Carbon Dioxide 26 (22-32) mmol/L BUN 17 (7-17) mg/dL Creatinine 0.72 (0.52-1.04) mg/dL Estimated GFR > 60 (>60) mL/min BUN/Creatinine Ratio 23.6 H (6-22) Glucose 94 (80-110) mg/dL Calcium 8.3 L (8.4-10.2) mg/dL Magnesium 2.1 (1.6-2.3) mg/dL Total Bilirubin 0.3 (0.2-1.3) mg/dL AST 36 (14-36) IU/L ALT 20 (<35) IU/L Alkaline Phosphatase 75 (38-126) U/L Total Creatine Kinase 788 H (30-135) U/L Troponin I < 0.012 (0.01-0.034) ng/mL NT-Pro-B Natriuret Pep 91 (<125) pg/mL Total Protein 6.5 (6.3-8.2) g/dL Albumin 4.1 (3.5-5.0) g/dL Globulin 2.4 (1.7-4.1) g/dL Albumin/Globulin Ratio 1.7 (1.0-2.8) Lipase 79 (23-300) U/L MDM Narrative Medical decision making narrative: CC: 7 days of exertional dyspnea Complicating co-morbidities: Data collected from: patient Social determinants of health that may influence the patients condition: Medical records reviewed: Differential considered: Exam documented above, pertinent findings include: Lab Test results independently reviewed as above. Pertinent findings: CBC shows normal white count and platelets. H&H is 8.4 and 25.4. Comparison is August of 2023 at 13.6 and 40.1. Her MCV is low at 79.9. Documents indicate a history of iron deficiency anemia but it does not look like it has been to this degree previously Chemistries are reassuring with normal creatinine Troponin is undetectable ProBNP is low Lipase is within normal limits Independently reviewed EKG: EKG shows sinus rhythm at a rate of 71. No acute ischemic changes Imaging studies independently reviewed: Chest x-ray shows no acute abnormalities, no cardiomegaly Discussion: Patient left prior to being seen or evaluated Discharge Plan Departure Patient Disposition: Left Without Being Seen Clinical Impression: Patient left without being seen Prescriptions: No Action cholecalciferol (vitamin D3) [Vitamin D3] 25 mcg (1,000 unit) tablet 25 mcg PO DAILY Qty: 30 0RF Rx Instructions: NO ADDITIONAL REFILLS UNTIL VITAMIN D BLOOD LEVELS ARE CHECKED. 9.5.23 losartan 50 mg tablet 50 mg PO DAILY Qty: 90 1RF Hold Instructions: Trying to see if Cozaar covered for patient under new plan levothyroxine [Synthroid] 50 mcg tablet 50 mcg PO DAILY Qty: 90 3RF
== END 2024-04-09 19:48 | disposition left against medical advice (07) ==
PROVIDERS: Emergency Medicine; Emergency Provider Emergency Medicine; PCP Family Medicine
DX: R06.02 Shortness of breath (principal); Z53.21 Procedure and treatment not carried out due to patient leaving prior to being seen by health care provider
CPT/HCPCS: 71045; 80053; 82550; 83690; 83735; 83880; 84484; 85025; 85610; 85730; 93005; 99281

== ENCOUNTER → 2024-04-29 12:26 | Outpatient (CLI) | payer MEDICARE, SELFPAY ==
[2019-02-16 19:59] VITALS: BMI 27.4
[2024-04-29 13:27] LABS: Hematocrit 29.7 % (36-46); Hemoglobin 9.9 g/dL (12.0-16.0); Mean Corpuscular HGB Conc 33.1 % (30-36); Mean Corpuscular Hemoglobin 27.1 PG (26-34); Mean Corpuscular Volume 81.8 fL (80-100); Platelet Count 327 X10^3/uL (150-400); Red Blood Cell Count 3.64 X10^6/uL (4.0-5.2); Red Cell Distribution Width 18.4 % (11.6-14.8); White Blood Cell Count 8.5 X10^3/uL (4.5-11.0)
[2024-04-29 13:40] LABS: Reticulocyte Count, Percent 1.6 % (1.1-2.6)
[2024-04-29 13:48] LABS: HEMOLYSIS < 15 (0-50); Iron 186 ug/dL (37-170)
[2024-04-29 13:59] LABS: Percent Iron Saturation 48 % (15-50); Total Iron Binding Capacity 384 ug/dL (265-497); Transferrin 313 mg/dL (206-381)
== END ==
LOC: LAB 12:26
PROVIDERS: PCP Family Medicine; Referring Provider Family Medicine; Visit Provider Family Medicine
DX: D50.9 Iron deficiency anemia, unspecified (principal); E03.9 Hypothyroidism, unspecified
CPT/HCPCS: 36415; 83540; 83550; 84443; 85027; 85045

== ENCOUNTER → 2025-10-07 08:23 | Outpatient (CLI) | payer MEDICARE, SELFPAY ==
[2019-02-16 19:59] VITALS: BMI 27.4
[2025-10-07 09:10] LABS: Add Manual Diff / Slide Review NO; Hematocrit 39.7 % (36-46); Hemoglobin 13.2 g/dL (12.0-16.0); Lymphocytes Absolute Auto 1800 /uL (1100-4500); Mean Corpuscular HGB Conc 33.3 % (30-36); Mean Corpuscular Hemoglobin 29.1 PG (26-34); Mean Corpuscular Volume 87.2 fL (80-100); Platelet Count 300 X10^3/uL (150-400)
[2025-10-07 09:42] LABS: Alanine Aminotransferase 23 IU/L (<35); Albumin 4.2 g/dL (3.5-5.0); Albumin Globulin Ratio 1.6 (1.0-2.8); Alkaline Phosphatase 83 U/L (38-126); Blood Urea Nitrogen 17 mg/dL (7-17); Calcium 9.0 mg/dL (8.4-10.2); Carbon Dioxide 29 mmol/L (22-32); Estimated Glomerular Filt Rate > 60 mL/min (>60); Globulin 2.6 g/dL (1.7-4.1); Glucose 100 mg/dL (70-99); HEMOLYSIS < 15 (0-50); Potassium 4.2 mmol/L (3.4-5.1); Sodium 135 mmol/L (137-145); Total Protein 6.8 g/dL (6.3-8.2)
[2025-10-07 10:03] LABS: Chloride 100 mmol/L (98-107)
[2025-10-07 10:10] LABS: TSH w/ Reflex to FT4 0.48 uIU/mL (0.47-4.68)
== END ==
PROVIDERS: PCP Family Medicine; Referring Provider Family Medicine; Visit Provider Family Medicine
DX: Z00.00 Encounter for general adult medical examination without abnormal findings (principal); M85.80 Other specified disorders of bone density and structure, unspecified site; I10 Essential (primary) hypertension; D50.9 Iron deficiency anemia, unspecified; E03.9 Hypothyroidism, unspecified
CPT/HCPCS: 36415; 80053; 84443; 85025